=== PATIENT | female | born 1990 | race Caucasian/White ===

== ENCOUNTER 2017-06-29 03:42 | Emergency (ER) | payer SELFPAY ==
[2017-06-29] MEDS ORDERED: METOCLOPRAMIDE HCL INJ/PF 10 MG/2 ML SDV IV ONE (05:09)
[2017-06-29] MEDS ORDERED: KETOROLAC TROMETHAMINE INJ/PF 30 MG/1 ML SDV IV ONE (05:09)
[2017-06-29] MEDS ORDERED: DIPHENHYDRAMINE HCL 50 MG/ML VIAL IV ONE (05:09)
[2017-06-29] MEDS ORDERED: NORMAL SALINE 1000 ML 1,000 ML IV ONE (05:09)
[2017-06-29] MEDS ORDERED: LIDOCAINE 2% VISCOUS SOLN 20 ML UDCUP PO ONE (05:10)
[2017-06-29] MEDS ORDERED: MAG HYDROX/AL HYDROX/SIMETH SUSP 30 ML UDCUP PO ONE (05:10)
--- NOTE | 2017-06-29 05:10 | ER Document Report ---
HPI - HPI Patient complains to provider of: VARGHESE Onset: Yesterday Onset/Duration: Gradual Quality of pain: Achy Pain Level: 4 Context: Patient presents complaining of headache pain that started yesterday around noon to the orthodox area. Patient reports photophobia and phonophobia. Patient also reports some left upper quadrant abdominal pain with drinking water that started around 1:00 this morning. Patient states that she ate some bad pork 2 days ago that caused her to have nausea and vomiting on Wednesday. Patient states the vomiting has resolved. Patient suspects her abdominal tenderness is from this recent food poisoning. Associated Symptoms: Headache, Nausea. denies: Nonproductive cough, Productive cough, Fever Exacerbated by: Denies Relieved by: Denies Similar symptoms previously: Yes Recently seen / treated by doctor: No - ROS ROS below otherwise negative: Yes Systems Reviewed and Negative: Yes All other systems reviewed and negative - CONSTITUTIONAL Constitutional: DENIES: Fever - NEURO Neurology: REPORTS: Headache. DENIES: Weakness, Vision blurred - RESPIRATORY Respiratory: DENIES: Trouble Breathing, Coughing - GASTROINTESTINAL Gastrointestinal: REPORTS: Abdominal Pain, Nausea - REPRODUCTIVE Reproductive: DENIES: : - MUSCULOSKELETAL Musculoskeletal: DENIES: Back Pain, Neck Pain - DERM Skin Color: Normal Skin Problems: None Past Medical History - General Information source: Patient - Social History Smoking Status: Never Smoker Frequency of alcohol use: None Drug Abuse: None Occupation: house keeping Lives with: Family Family History: Reviewed & Not Pertinent Patient has suicidal ideation: No Patient has homicidal ideation: No Neurological Medical History: Reports: Hx Migraine Renal/ Medical History: Reports: Hx Kidney Stones. Denies: Hx Peritoneal Dialysis GI Medical History: Reports: Hx Gastroesophageal Reflux Disease Past Surgical History: Reports: Hx Section - Immunizations Immunizations up to date: Yes Hx Diphtheria, Pertussis, Tetanus Vaccination: Yes Vertical Provider Document - CONSTITUTIONAL Agree With Documented VS: Yes Exam Limitations: No Limitations General Appearance: WD/WN, No Apparent Distress - INFECTION CONTROL TRAVEL OUTSIDE OF THE [place] IN LAST 30 DAYS: No - HEENT HEENT: Atraumatic, Normal ENT Exam, Normocephalic - NECK Neck: Normal Inspection, Supple. negative: Lymphadenopathy-Left, Lymphadenopathy-Right Notes: No meningismus - RESPIRATORY Respiratory: Breath Sounds Normal, No Respiratory Distress, Chest Non-Tender O2 Sat by Pulse Oximetry: 97 - CARDIOVASCULAR Cardiovascular: Regular Rate, Regular Rhythm, No Murmur - GI/ABDOMEN Gastrointestinal: Abdomen Soft, Abdomen Tender - Epigastric, left upper quadrant tenderness. negative: Abdominal Guarding - BACK Back: Normal Inspection. negative: CVA Tenderness-Right, CVA Tenderness-Left - MUSCULOSKELETAL/EXTREMETIES Musculoskeletal/Extremeties: ANTWON FROM - NEURO Level of Consciousness: Awake, Alert, Appropriate Motor/Sensory: No Motor Deficit - DERM Integumentary: Warm, Dry, No Rash Course - Re-evaluation Re-evalutation: 06/29/17 06:22 Patient reports that headache pain is improved, patient reports nausea is improved as well. Patient up to collect a urine specimen. 06/29/17 07:00 Patient reports abdominal pain was resolved after GI cocktail. Abdomen soft, nontender. Patient nontoxic in appearance. Discussed worsening signs or symptoms the patient should return immediately for. Patient verbalized understanding and agrees with plan of care. - Vital Signs Vital signs: Temp Pulse Resp BP Pulse Ox 98.5 F 92 16 142/100 H 97 06/29/17 04:35 06/29/17 04:35 06/29/17 04:35 06/29/17 04:35 06/29/17 04:35 - Laboratory Result Diagrams: 06/29/17 05:25 06/29/17 05:25 Laboratory results interpreted by me: 06/29/17 07:00 Labs- Entire Visit 06/29/17 06/29/17 06/29/17 05:25 05:25 05:25 WBC 4.6 RBC 4.99 Hgb 13.9 Hct 41.2 MCV 83 MCH 27.9 MCHC 33.8 RDW 14.9 H Plt Count 225 Seg Neutrophils % 72.1 Lymphocytes % 20.9 Monocytes % 5.9 Eosinophils % 0.8 Basophils % 0.3 Absolute Neutrophils 3.3 Absolute Lymphocytes 1.0 Absolute Monocytes 0.3 Absolute Eosinophils 0.0 Absolute Basophils 0.0 Sodium 140.4 Potassium 4.0 Chloride 102 Carbon Dioxide 26 Anion Gap 12 BUN 11 Creatinine 0.62 Est GFR ( Amer) > 60 Est GFR (Non-Af Amer) > 60 Glucose 108 Calcium 9.4 Total Bilirubin 0.8 Direct Bilirubin 0.4 Indirect Bilirubin Not Reportable Neonat Total Bilirubin Not Reportable AST 18 ALT 27 Alkaline Phosphatase 99 Total Protein 6.9 Albumin 3.9 Lipase 58.3 Serum HCG, Qual NEGATIVE Urine Color Urine Appearance Urine pH Ur Specific [place] Urine Protein Urine Glucose (UA) Urine Ketones Urine Blood Urine Nitrite Urine Bilirubin Urine Urobilinogen Ur Leukocyte Esterase Urine WBC (Auto) Urine RBC (Auto) Urine Bacteria (Auto) Squamous Epi Cells Auto Amorphous Sediment Auto Urine Mucus (Auto) Urine Ascorbic Acid 06/29/17 06:23 WBC RBC Hgb Hct MCV MCH MCHC RDW Plt Count Seg Neutrophils % Lymphocytes % Monocytes % Eosinophils % Basophils % Absolute Neutrophils Absolute Lymphocytes Absolute Monocytes Absolute Eosinophils Absolute Basophils Sodium Potassium Chloride Carbon Dioxide Anion Gap BUN Creatinine Est GFR ( Amer) Est GFR (Non-Af Amer) Glucose Calcium Total Bilirubin Direct Bilirubin Indirect Bilirubin Neonat Total Bilirubin AST ALT Alkaline Phosphatase Total Protein Albumin Lipase Serum HCG, Qual Urine Color YELLOW Urine Appearance SLIGHTLY-CLOUDY Urine pH 6.0 Ur Specific [place] 1.017 Urine Protein NEGATIVE Urine Glucose (UA) NEGATIVE Urine Ketones NEGATIVE Urine Blood SMALL H Urine Nitrite NEGATIVE Urine Bilirubin NEGATIVE Urine Urobilinogen NEGATIVE Ur Leukocyte Esterase LARGE H Urine WBC (Auto) 42 Urine RBC (Auto) 8 Urine Bacteria (Auto) TRACE Squamous Epi Cells Auto 5 Amorphous Sediment Auto TRACE Urine Mucus (Auto) FEW Urine Ascorbic Acid NEGATIVE Discharge - Discharge Clinical Impression: Elevated blood pressure reading Headache Qualifiers: Headache type: unspecified Headache chronicity pattern: unspecified pattern Intractability: not intractable Qualified Code(s): R51 - Headache Gastritis Qualifiers: Gastritis type: unspecified gastritis Chronicity: acute Gastritis bleeding: without bleeding Qualified Code(s): K29.00 - Acute gastritis without bleeding UTI (urinary tract infection) Qualifiers: Urinary tract infection type: site unspecified Hematuria presence: with hematuria Qualified Code(s): N39.0 - Urinary tract infection, site not specified Condition: Stable Disposition: HOME, SELF-CARE Instructions: Antinausea Medication ([facility]), Gastritis ([facility]), Headache ([facility]), Trimethoprim-Sulfa ([facility]), Urinary Tract Infection ([facility]) Additional Instructions: Return immediately for any new or worsening symptoms Followup with your primary care provider, [facility], call tomorrow to make a followup appointment Prescriptions: Omeprazole Magnesium [Prilosec Otc] 20 mg PO DAILY #15 tablet. Promethazine HCl [Phenergan 25 mg Tablet] 25 mg PO Q6H PRN #10 tablet PRN Reason: Sucralfate [Carafate 1 gm Tablet] 1 gm PO ACHS #40 tablet Sulfamethoxazole/Trimethoprim [Bactrim Ds Tablet] 1 each PO BID #10 tablet Forms: Return to Work, Elevated Blood Pressure
[2017-06-29 05:58] LABS: ABSOLUTE MONOCYTES (AUTO) 0.3 10^3/uL (0.1-1.4); ABSOLUTE NEUT (AUTO) 3.3 10^3/uL (1.7-8.2); BASOPHILS % (AUTO) 0.3 % (0-2); EOSINOPHILS % (AUTO) 0.8 % (0-6); HEMATOCRIT 41.2 % (36.0-47.0); HEMOGLOBIN 13.9 g/dL (12.0-15.5); HGB HCT DIFFERENCE 0.5; LYMPHOCYTES % (AUTO) 20.9 % (13-45); MEAN CORPUSCULAR HEMOGLOBIN 27.9 pg (27.0-33.4); MEAN CORPUSCULAR HGB CONC 33.8 g/dL (32.0-36.0); MEAN CORPUSCULAR VOLUME 83 fl (80-97); MONOCYTES % (AUTO) 5.9 % (3-13); RED BLOOD COUNT 4.99 10^6/uL (3.72-5.28); RED CELL DISTRIBUTION WIDTH 14.9 % (11.5-14.0); SEGMENTED NEUTROPHILS % (AUTO) 72.1 % (42-78); WHITE BLOOD COUNT 4.6 10^3/uL (4.0-10.5)
[2017-06-29 06:15] LABS: ALANINE AMINOTRANSFERASE 27 U/L (9-52); ALBUMIN 3.9 g/dL (3.5-5.0); ALKALINE PHOSPHATASE 99 U/L (38-126); ANION GAP 12 (5-19); ASPARTATE AMINO TRANSFERASE 18 U/L (14-36); BILIRUBIN,DIRECT 0.4 mg/dL (0.0-0.4); BILIRUBIN,TOTAL 0.8 mg/dL (0.2-1.3); BLOOD UREA NITROGEN 11 mg/dL (7-20); CALCIUM 9.4 mg/dL (8.4-10.2); CARBON DIOXIDE 26 mmol/L (22-30); CHLORIDE 102 mmol/L (98-107); CREATININE RESULT 0.62 mg/dL (0.52-1.25); GLUCOSE 108 mg/dL (75-110); LIPASE 58.3 U/L (23-300); SODIUM 140.4 mmol/L (137-145); TOTAL PROTEIN 6.9 g/dL (6.3-8.2)
[2017-06-29 06:54] LABS: AMORPHOUS SEDIMENT,URINE TRACE /HPF; APPEARANCE,URINE SLIGHTLY-CLOUDY; BILIRUBIN,URINE NEGATIVE (NEGATIVE); GLUCOSE, URINE NEGATIVE (NEGATIVE); KETONES,URINE NEGATIVE (NEGATIVE); LEUKOCYTE ESTERASE,URINE LARGE (NEGATIVE); NITRITE,URINE NEGATIVE (NEGATIVE); PROTEIN,URINE NEGATIVE (NEGATIVE); URINE SPECIFIC GRAVITY 1.017; UROBILINOGEN,URINE NEGATIVE mg/dL (<2.0)
[2017-06-29] MEDS ORDERED: SULFAMETHOXAZOLE/TRIMETHOPRIM 800-160 MG TABLET PO ONE (06:56)
[2017-06-29 07:15] VITALS: BP 133/90
== END 2017-06-29 07:15 | disposition home or self-care (01) ==
LOC: ER 03:42
DX: R51 Headache (principal); K29.00 Acute gastritis without bleeding; N39.0 Urinary tract infection, site not specified; R31.9 Hematuria, unspecified; R03.0 Elevated blood-pressure reading, without diagnosis of hypertension; H53.149 Visual discomfort, unspecified; R10.12 Left upper quadrant pain; R11.0 Nausea
CPT/HCPCS: 99284; 96361; 96374; 96375; 36415; 83690; 84703; 85025; 80053; 81001; J1200; J3490; J1885; J2765; J7030

== ENCOUNTER 2018-01-03 17:22 | Emergency (ER) | payer SELFPAY ==
[2018-01-03] MEDS ORDERED: ACETAMINOPHEN 325 MG TABLET PO ONE (17:58)
--- NOTE | 2018-01-03 18:22 | RADIOLOGY REPORT (SQ) ---
EXAM DESCRIPTION: ANKLE LEFT COMPLETE COMPLETED DATE/TIME: 01/03/2018 6:08 pm REASON FOR STUDY: twisted her ankle today, pain COMPARISON: None. NUMBER OF VIEWS: Three views. TECHNIQUE: AP, lateral, and oblique radiographic images acquired of the left ankle. LIMITATIONS: None. FINDINGS: MINERALIZATION: Normal. BONES: No acute fracture or dislocation. No worrisome bone lesions. JOINTS: No effusions. SOFT TISSUES: No soft tissue swelling. No foreign body. OTHER: No other significant finding. IMPRESSION: NEGATIVE STUDY OF THE LEFT ANKLE. NO RADIOGRAPHIC EVIDENCE OF ACUTE INJURY. TECHNICAL DOCUMENTATION: JOB ID: [id number] [employer]- All Rights Reserved Reading location - IP/workstation name: [email or web address]
--- NOTE | 2018-01-03 18:36 | ER Document Report ---
HPI - HPI Patient complains to provider of: Left ankle and foot pain Pain Level: 4 Context: Patient is a 27-year-old female who presents emergency department after a fall earlier this afternoon. Patient states that she was walking slipped over a rock and anterior and laterally rolled her left foot. And scratched her right knee. She admits to pain is along the top of her left foot and along her lateral ankle. She denies any significant swelling. She is taken 400 mg of Motrin prior to arrival. States it is worse with weightbearing and deep palpation. - REPRODUCTIVE LMP: 12/05/17 Reproductive: DENIES: : - MUSCULOSKELETAL Musculoskeletal: REPORTS: Extremity pain - left ankle Past Medical History - Social History Smoking Status: Smoker,Current Status Unk Family History: Reviewed & Not Pertinent Patient has suicidal ideation: No Patient has homicidal ideation: No Neurological Medical History: Reports: Hx Migraine Renal/ Medical History: Reports: Hx Kidney Stones. Denies: Hx Peritoneal Dialysis GI Medical History: Reports: Hx Gastroesophageal Reflux Disease Past Surgical History: Reports: Hx Section - Immunizations Immunizations up to date: Yes Hx Diphtheria, Pertussis, Tetanus Vaccination: Yes Vertical Provider Document - CONSTITUTIONAL Agree With Documented VS: Yes Notes: PHYSICAL EXAM GENERAL: Alert, interacts well. HEAD: Normocephalic, atraumatic. EXTREMITIES: Moves all 4 extremities spontaneously. Tenderness on the top of the foot along the left extensor digitorum longus. No edema, dorsalis pedis pulses 2/4 bilaterally. No cyanosis. NEUROLOGICAL: Alert and oriented x4. Normal speech. PSYCH: Normal affect, normal mood. SKIN: Warm, dry, normal turgor. Abrasion on the right knee without active bleeding - INFECTION CONTROL TRAVEL OUTSIDE OF THE [place] IN LAST 30 DAYS: No - RESPIRATORY O2 Sat by Pulse Oximetry: 100 Course - Re-evaluation Re-evalutation: 01/03/18 18:34 Patient is a 27-year-old female is hemodynamically stable, no acute distress. Presentation is consistent with a strain of her extensor digitorum longus secondary to her fall. No evidence of a septic joint, gout flare, dislocation, or fracture on exam and imaging. Vitals wnl. At this time, I do not see an indication for labs or further imaging. Will discharge with conservative measures, return precautions, and follow-up recommendations. - Vital Signs Vital signs: Temp Pulse Resp BP Pulse Ox 98.6 F 96 20 150/99 H 100 01/03/18 17:48 01/03/18 17:48 01/03/18 17:48 01/03/18 17:48 01/03/18 17:48 - Diagnostic Test Radiology reviewed: Image reviewed, Reports reviewed Procedures - Immobilization Left Foot Pre-Proc Neuro Vasc Exam: Normal Immobilizer type: Guy wrap Performed by: PCT Post-Proc Neuro Vasc Exam: Unchanged from pre-exam Alignment checked and good: Yes Discharge - Discharge Clinical Impression: Foot injury Qualifiers: Encounter type: initial encounter Laterality: left Qualified Code(s): S99.922A - Unspecified injury of left foot, initial encounter Condition: Good Disposition: HOME, SELF-CARE Instructions: Guy Wrap ([facility]), Ice & Elevation ([facility]), Sprained Ankle ([facility]) Prescriptions: Ketorolac Tromethamine [Toradol 10 mg Tablet] 10 mg PO Q6HP PRN #15 tablet PRN Reason: Forms: Elevated Blood Pressure, Return to Work Referrals: JESÚS FOWLER MD [Primary Care Provider] - Follow up in 1 week
[2018-01-03 18:46] VITALS: BP 144/81
== END 2018-01-03 19:02 | disposition home or self-care (01) ==
LOC: ER 17:22
PROC: 2W3RX1Z Immobilization of Left Lower Leg using Splint (ICD-10-PCS; principal; 2018-01-03)
DX: S99.922A Unspecified injury of left foot, initial encounter (principal); F17.200 Nicotine dependence, unspecified, uncomplicated; W01.0XXA Fall on same level from slipping, tripping and stumbling without subsequent striking against object, initial encounter; Z87.442 Personal history of urinary calculi
CPT/HCPCS: 99283

== ENCOUNTER 2018-02-09 17:57 | Emergency (ER) | payer SELFPAY ==
[2018-02-09] MEDS ORDERED: ONDANSETRON HCL INJ/PF 4 MG/2 ML SDV IV ONE (19:15)
[2018-02-09] MEDS ORDERED: KETOROLAC TROMETHAMINE INJ/PF 30 MG/1 ML SDV IV ONE ×2 (19:15→20:20)
[2018-02-09] MEDS ORDERED: NORMAL SALINE 1000 ML 1,000 ML IV ONE (19:15)
--- NOTE | 2018-02-09 19:18 | ER Document Report ---
ED Medical Screen (RME) - General Chief Complaint: Headache Stated Complaint: HEADACHE, DIZZY, CHILLS Time Seen by Provider: 02/09/18 19:13 Notes: Patient states she has migraines and now has a severe migraine headache as well as nausea and vomiting. In addition she has flank pain with pain with urination. She states she has a history of kidney stones. TRAVEL OUTSIDE OF THE [place] IN LAST 30 DAYS: No - Related Data Allergies/Adverse Reactions: No Known Allergies Allergy (Verified 02/09/18 17:59) Past Medical History - Social History Chew tobacco use (# tins/day): No Frequency of alcohol use: Rare Drug Abuse: None Neurological Medical History: Reports: Hx Migraine Renal/ Medical History: Reports: Hx Kidney Stones. Denies: Hx Peritoneal Dialysis GI Medical History: Reports: Hx Gastroesophageal Reflux Disease Past Surgical History: Reports: Hx Section - Immunizations Immunizations up to date: Yes Hx Diphtheria, Pertussis, Tetanus Vaccination: Yes Physical Exam - Vital signs Vitals: Temp Pulse Resp BP Pulse Ox 97.7 F 92 20 151/111 H 100 02/09/18 18:03 02/09/18 18:03 02/09/18 18:03 02/09/18 18:03 02/09/18 18:03 Course - Vital Signs Vital signs: Temp Pulse Resp BP Pulse Ox 97.7 F 92 20 151/111 H 100 02/09/18 18:03 02/09/18 18:03 02/09/18 18:03 02/09/18 18:03 02/09/18 18:03
[2018-02-09 20:46] LABS: ABSOLUTE EOSINOPHILS # (AUTO) 0.1 10^3/uL (0.0-0.6); ABSOLUTE LYMPHOCYTES (AUTO) 1.6 10^3/uL (0.5-4.7); ABSOLUTE MONOCYTES (AUTO) 0.3 10^3/uL (0.1-1.4); ABSOLUTE NEUT (AUTO) 7.7 10^3/uL (1.7-8.2); BASOPHILS % (AUTO) 0.5 % (0-2); EOSINOPHILS % (AUTO) 0.6 % (0-6); HEMATOCRIT 36.4 % (36.0-47.0); HEMOGLOBIN 12.3 g/dL (12.0-15.5); LYMPHOCYTES % (AUTO) 16.9 % (13-45); MEAN CORPUSCULAR HEMOGLOBIN 27.5 pg (27.0-33.4); MEAN CORPUSCULAR HGB CONC 33.8 g/dL (32.0-36.0); MEAN CORPUSCULAR VOLUME 82 fl (80-97); PLATELET COUNT 253 10^3/uL (150-450); RED BLOOD COUNT 4.47 10^6/uL (3.72-5.28); TOTAL CELLS COUNTED % (AUTO) 100 %; WHITE BLOOD COUNT 9.7 10^3/uL (4.0-10.5)
[2018-02-09 21:06] LABS: ALANINE AMINOTRANSFERASE 28 U/L (9-52); ALBUMIN 3.7 g/dL (3.5-5.0); ALKALINE PHOSPHATASE 87 U/L (38-126); ANION GAP 9 (5-19); ASPARTATE AMINO TRANSFERASE 12 U/L (14-36); BILIRUBIN,DIRECT 0.1 mg/dL (0.0-0.4); BILIRUBIN,TOTAL 0.3 mg/dL (0.2-1.3); BLOOD UREA NITROGEN 10 mg/dL (7-20); CALCIUM 8.7 mg/dL (8.4-10.2); CARBON DIOXIDE 26 mmol/L (22-30); CHLORIDE 108 mmol/L (98-107); GLUCOSE 102 mg/dL (75-110); POTASSIUM 3.9 mmol/L (3.6-5.0); SODIUM 143.4 mmol/L (137-145); TOTAL PROTEIN 6.4 g/dL (6.3-8.2)
[2018-02-09 21:33] LABS: APPEARANCE,URINE SLIGHTLY-CLOUDY; BILIRUBIN,URINE NEGATIVE (NEGATIVE); GLUCOSE, URINE NEGATIVE (NEGATIVE); KETONES,URINE TRACE mg/dL (NEGATIVE); LEUKOCYTE ESTERASE,URINE LARGE (NEGATIVE); NITRITE,URINE POSITIVE (NEGATIVE); PROTEIN,URINE 30 mg/dL (NEGATIVE); URINE SPECIFIC GRAVITY 1.024
[2018-02-09 21:38] LABS: COLOR,URINE YELLOW
--- NOTE | 2018-02-09 21:53 | ER Document Report ---
ED Headache - General Chief Complaint: Headache Stated Complaint: HEADACHE, DIZZY, CHILLS Time Seen by Provider: 02/09/18 19:13 Mode of Arrival: Ambulatory Information source: Patient TRAVEL OUTSIDE OF THE [place] IN LAST 30 DAYS: No - HPI Patient complains to provider of: Headache, "Migraine", Other - R. FLANK PAIN Patient reports: Occasional migraines Onset: Yesterday - APPROX. MIDNIGHT Onset was: Abrupt. denies: Thunderclap Timing: Still present Quality of pain: Achy, Dull Severity: Moderate Context: denies: CO exposure, Head injury, Insect bite, Meningitis exposure, Tick bite Preceding symptoms: Typical of prior aura(s) Associated symptoms: Chills, Nausea/vomiting, Photophobia. denies: Fever Exacerbated by: Light, Noise, Movement Similar symptoms previously: Yes - SAYS PRESENT H.A. IS TYPICAL OF PRIOR "MIGRAINES" Recently seen / treated by doctor: No - Related Data Allergies/Adverse Reactions: No Known Allergies Allergy (Verified 02/09/18 17:59) Past Medical History - General Information source: Patient - Social History Smoking Status: Never Smoker Cigarette use (# per day): No Chew tobacco use (# tins/day): No Frequency of alcohol use: Rare Drug Abuse: None Lives with: Spouse/Significant other Family History: Reviewed & Not Pertinent Patient has suicidal ideation: No Patient has homicidal ideation: No - Past Medical History Cardiac Medical History: Reports: None Pulmonary Medical History: Reports: None EENT Medical History: Reports: None Neurological Medical History: Reports: Hx Migraine Endocrine Medical History: Reports: None Renal/ Medical History: Reports: Hx Kidney Stones, Other - UTI. Denies: Hx Peritoneal Dialysis Malignancy Medical History: Reports: None GI Medical History: Reports: Hx Gastroesophageal Reflux Disease Musculoskeltal Medical History: Reports None Psychiatric Medical History: Reports: None Past Surgical History: Reports: Hx Section - Immunizations Immunizations up to date: Yes Hx Diphtheria, Pertussis, Tetanus Vaccination: Yes Review of Systems - Review of Systems Constitutional: See HPI EENT: No symptoms reported Cardiovascular: No symptoms reported Respiratory: No symptoms reported Gastrointestinal: See HPI Genitourinary: See HPI, Dysuria, Frequency, Flank pain Female Genitourinary: No symptoms reported Musculoskeletal: No symptoms reported Skin: No symptoms reported Neurological/Psychological: No symptoms reported Physical Exam - Vital signs Vitals: Temp Pulse Resp BP Pulse Ox 97.7 F 92 20 151/111 H 100 02/09/18 18:03 02/09/18 18:03 02/09/18 18:03 02/09/18 18:03 02/09/18 18:03 Interpretation: Hypertensive. No: Tachycardic, Tachypneic, Febrile - General General appearance: Appears well, Alert In distress: None - HEENT Head: Normocephalic Eyes: Normal Conjunctiva: Normal Ears: Normal Nasal: Normal Mouth/Lips: Normal Mucous membranes: Normal - Respiratory Respiratory status: No respiratory distress Breath sounds: Normal - Cardiovascular Rhythm: Regular Heart sounds: Normal auscultation Murmur: No - Abdominal Inspection: Obese - Back Back: CVA tenderness - RIGHT - Extremities General upper extremity: Normal inspection General lower extremity: Normal inspection - Neurological Neuro grossly intact: Yes Cognition: Normal Orientation: AAOx4 - Psychological Associated symptoms: Normal affect, Normal mood - Skin Skin Temperature: Warm Skin Moisture: Dry Skin Color: Normal Skin Turgor: Elastic Course - Re-evaluation Re-evalutation: 02/10/18 01:33 Patient states her headache is "much better." Results of laboratory studies discussed with patient and spouse. Will discharge with instructions for outpatient follow-up. - Vital Signs Vital signs: Temp Pulse Resp BP Pulse Ox 97.7 F 90 20 138/111 H 96 02/09/18 18:03 02/09/18 22:02 02/09/18 22:02 02/10/18 00:33 02/10/18 00:01 - Laboratory Result Diagrams: 02/09/18 20:35 02/09/18 20:35 Laboratory results interpreted by me: 02/09/18 02/09/18 02/09/18 20:35 20:35 21:00 Seg Neutrophils % 79.0 H Chloride 108 H AST 12 L Urine Protein 30 H Urine Ketones TRACE H Urine Blood MODERATE H Urine Nitrite POSITIVE H Urine Urobilinogen 4.0 H Ur Leukocyte Esterase LARGE H Discharge - Discharge Clinical Impression: Urinary tract infection Migraine Qualifiers: Migraine type: unspecified Status migrainosus presence: without status migrainosus Intractability: not intractable Qualified Code(s): G43.909 - Migraine, unspecified, not intractable, without status migrainosus Hypertension Qualifiers: Hypertension type: essential hypertension Qualified Code(s): I10 - Essential ( primary) hypertension Condition: Stable Disposition: HOME, SELF-CARE Instructions: Antinausea Medication ([facility]), Use of Diphenhydramine, Headache ( [facility]), High Blood Pressure, Requiring Treatment ([facility]), Oral Narcotic Medication ( [facility]), Pain Medication Injection ([facility]), Reglan ([facility]), Toradol Injection ([facility]), Urinary Tract Infection ([facility]), Nitrofurantoin ([facility]) Additional Instructions: HOME, BED REST FOR NEXT 6-8 HOURS. TAKE LOPRESSOR DIRECTED FOR BLOOD PRESSURE CONTROL. YOU MAY TAKE ZOFRAN IF NEEDED FOR NAUSEA CONTROL. YOU MAY TAKE FIORICET IF NEEDED FOR RECURRENT HEADACHE PAIN. FOLLOW UP WITH YOUR PRIMARY CARE PROVIDER FOR BLOOD PRESSURE MANAGEMENT. RETURN TO E.R. IF PROBLEMS. Prescriptions: Butalb/Acetaminophen/Caffeine [Fioricet (50-325-40 mg) Tablet] 1 - 2 tab PO Q4H PRN #20 each PRN Reason: For Headache Metoprolol Tartrate [Lopressor 25 mg Tablet] 12.5 mg PO Q12 #30 tab Nitrofurantoin/Nitrofuran Mac [Macrobid 100 mg Capsule] 100 mg PO BID #20 capsule
[2018-02-09] MEDS ORDERED: METOCLOPRAMIDE HCL INJ/PF 10 MG/2 ML SDV IV ONE (22:01)
[2018-02-09] MEDS ORDERED: NORMAL SALINE 1000 ML 1,000 ML IV PRN (22:01)
[2018-02-09] MEDS ORDERED: DIPHENHYDRAMINE HCL 50 MG/ML VIAL IV ONE (22:01)
[2018-02-09] MEDS ORDERED: LEVOFLOXACIN 500 MG/D5W RTU 500 MG/100 ML RTUPB IV ONE (22:06)
[2018-02-09] MEDS ORDERED: METOPROLOL TARTRATE 25 MG TABLET PO ONE (22:08)
[2018-02-10] MEDS ORDERED: METOPROLOL TARTRATE 25 MG TABLET PO ONE
[2018-02-10 01:01] VITALS: BP 134/100
[2018-02-10] MEDS ORDERED: ONDANSETRON ODT 4 MG TAB (6 TAB/ER DISP) PO PRN (01:33)
== END 2018-02-10 01:48 | disposition home or self-care (01) ==
LOC: ER 17:57
DX: G43.909 Migraine, unspecified, not intractable, without status migrainosus (principal); N39.0 Urinary tract infection, site not specified; I10 Essential (primary) hypertension; H53.149 Visual discomfort, unspecified; R10.9 Unspecified abdominal pain; R11.2 Nausea with vomiting, unspecified; R30.0 Dysuria; R35.0 Frequency of micturition; Z87.442 Personal history of urinary calculi; Z87.440 Personal history of urinary (tract) infections; Z87.19 Personal history of other diseases of the digestive system
CPT/HCPCS: 99284; 96361; 96375; 96365; 36415; 87086; 85025; 81025; 80053; 81001; J1956; J1200; J1885; J2765; J2405; J7030

== ENCOUNTER 2018-02-11 11:23 | Emergency (ER) | payer SELFPAY ==
[2018-02-11] MEDS ORDERED: KETOROLAC TROMETHAMINE 60 MG/2 ML SDV IM ONE (12:21)
--- NOTE | 2018-02-11 12:24 | ER Document Report ---
ED Medical Screen (RME) - General Chief Complaint: Flank Pain Stated Complaint: RIGHT SIDE PAIN Time Seen by Provider: 02/11/18 12:16 Notes: 27-year-old female patient with right flank pain since 8 AM this morning. There is some nausea with this. She was seen on 02/09/2018 in the evening for symptoms of headache, dizzy, chills. She was diagnosed with urinary tract infection culture has not been resulted yet. Urine did have over 20 WBCs and large amount of blood in it. She does have a history of kidney stones, none so far this year. She has had at least [address] scans in the past. She did have a negative hCG 2 days ago. She does have right CVA percussion tenderness. I have greeted and performed a rapid initial assessment of this patient. A comprehensive ED assessment and evaluation of the patient, analysis of test results and completion of the medical decision making process will be conducted by additional ED providers. TRAVEL OUTSIDE OF THE [place] IN LAST 30 DAYS: No - Related Data Allergies/Adverse Reactions: No Known Allergies Allergy (Verified 02/09/18 17:59) Past Medical History - Social History Chew tobacco use (# tins/day): No Frequency of alcohol use: None Drug Abuse: None Neurological Medical History: Reports: Hx Migraine Renal/ Medical History: Reports: Hx Kidney Stones. Denies: Hx Peritoneal Dialysis GI Medical History: Reports: Hx Gastroesophageal Reflux Disease Past Surgical History: Reports: Hx Section - Immunizations Immunizations up to date: Yes Hx Diphtheria, Pertussis, Tetanus Vaccination: Yes Physical Exam - Vital signs Vitals: Temp Pulse Resp BP Pulse Ox 97.8 F 76 20 152/96 H 99 02/11/18 11:28 02/11/18 11:28 02/11/18 11:28 02/11/18 11:28 02/11/18 11:28 Course - Vital Signs Vital signs: Temp Pulse Resp BP Pulse Ox 97.8 F 76 20 152/96 H 99 02/11/18 11:28 02/11/18 11:28 02/11/18 11:28 02/11/18 11:28 02/11/18 11:28
[2018-02-11 12:53] LABS: ABSOLUTE BASOPHILS # (AUTO) 0.1 10^3/uL (0.0-0.2); ABSOLUTE EOSINOPHILS # (AUTO) 0.1 10^3/uL (0.0-0.6); ABSOLUTE LYMPHOCYTES (AUTO) 1.6 10^3/uL (0.5-4.7); ABSOLUTE MONOCYTES (AUTO) 0.3 10^3/uL (0.1-1.4); ABSOLUTE NEUT (AUTO) 8.5 10^3/uL (1.7-8.2); BASOPHILS % (AUTO) 0.5 % (0-2); EOSINOPHILS % (AUTO) 0.8 % (0-6); HEMATOCRIT 39.4 % (36.0-47.0); HEMOGLOBIN 13.3 g/dL (12.0-15.5); LYMPHOCYTES % (AUTO) 15.2 % (13-45); MEAN CORPUSCULAR HEMOGLOBIN 27.6 pg (27.0-33.4); MEAN CORPUSCULAR HGB CONC 33.8 g/dL (32.0-36.0); MEAN CORPUSCULAR VOLUME 82 fl (80-97); MONOCYTES % (AUTO) 3.1 % (3-13); PLATELET COUNT 296 10^3/uL (150-450); RED BLOOD COUNT 4.83 10^6/uL (3.72-5.28); RED CELL DISTRIBUTION WIDTH 13.6 % (11.5-14.0); SEGMENTED NEUTROPHILS % (AUTO) 80.4 % (42-78); TOTAL CELLS COUNTED % (AUTO) 100 %; WHITE BLOOD COUNT 10.6 10^3/uL (4.0-10.5)
[2018-02-11] MEDS ORDERED: HYDROMORPHONE HCL INJ/PF 2 MG/ML AMPULE IV ONE (13:04)
[2018-02-11] MEDS ORDERED: ONDANSETRON HCL INJ/PF 4 MG/2 ML SDV IV ONE (13:04)
[2018-02-11] MEDS ORDERED: NORMAL SALINE 1000 ML 1,000 ML IV ONE (13:04)
--- NOTE | 2018-02-11 13:07 | ER Document Report ---
ED GI/ - General Chief Complaint: Flank Pain Stated Complaint: RIGHT SIDE PAIN Time Seen by Provider: 02/11/18 12:16 Mode of Arrival: Ambulatory Information source: Patient TRAVEL OUTSIDE OF THE [place] IN LAST 30 DAYS: No - HPI Patient complains to provider of: Flank pain Notes: 02/11/18 13:05 Patient is here with complaints of flank pain with nausea vomiting. The patient states she was seen here 2 days ago and diagnosed with urinary tract infection she was placed on Macrobid. She started developing some right-sided flank pain that has gotten progressively worse. She has a prior history of kidney stones, and states that this feels similar to prior kidney stones. She denies any fever. She has some nausea vomiting. She denies any diarrhea. No rash. No chest pain or shortness of breath. No injury. Nothing makes the pain better or worse. No unilateral numbness, tingling, weakness. No blurred or loss vision. No other complaints at this time. - Related Data Allergies/Adverse Reactions: No Known Allergies Allergy (Verified 02/09/18 17:59) Past Medical History - Social History Smoking Status: Never Smoker Chew tobacco use (# tins/day): No Frequency of alcohol use: None Drug Abuse: None Family History: Reviewed & Not Pertinent Patient has suicidal ideation: No Patient has homicidal ideation: No Neurological Medical History: Reports: Hx Migraine Renal/ Medical History: Reports: Hx Kidney Stones. Denies: Hx Peritoneal Dialysis GI Medical History: Reports: Hx Gastroesophageal Reflux Disease Past Surgical History: Reports: Hx Section - Immunizations Immunizations up to date: Yes Hx Diphtheria, Pertussis, Tetanus Vaccination: Yes Review of Systems - Review of Systems -: Yes All other systems reviewed and negative Physical Exam - Vital signs Vitals: Temp Pulse Resp BP Pulse Ox 97.8 F 76 20 152/96 H 99 02/11/18 11:28 02/11/18 11:28 02/11/18 11:28 02/11/18 11:28 02/11/18 11:28 - Notes Notes: GENERAL: alert, cooperative, nontoxic, no distress. HEAD: normocephalic, atraumatic EYES: conjunctiva pink without discharge, no external redness or swelling. EARS: no external swelling, no external redness NOSE: atraumatic, no external swelling MOUTH/THROAT: mucous membranes moist and pink, posterior pharynx without erythema, swelling, exudate. No trismus or drooling. NECK: soft, supple, full range of motion, no meningismus. CHEST: no distress, lungs clear and equal throughout. No wheezing, rales, rhonchi. CARDIAC: regular rate and rhythm, no murmur, normal capillary refill, normal pulses. No peripheral edema noted. ABDOMEN: Soft, nontender. No rebound tenderness or guarding. No mass. BACK: full range of motion, right CVA tenderness. EXTREMITIES: full range of motion of all extremities. No redness, no swelling. NEURO: alert and oriented x 3, no focal deficits, full range of motion of all extremities. PYSCH: appropriate mood, affect. Patient is cooperative. SKIN: pink, warm, dry, no rash. Course - Re-evaluation Re-evalutation: 02/11/18 15:34 Patient is nontoxic appearing with stable vitals. She is here with complaints of right flank pain. Patient was seen 2 days ago and and started on Macrobid for urinary tract infection. She is now having right flank pain. No fevers. CT shows a 2 mm right distal ureteral stone with some hydronephrosis. She is afebrile. White blood cell count 10.6. She has no abdominal tenderness on exam. Urinalysis shows large blood, small leukocyte esterase with a few white blood cells. The patient does not appear to be septic or have a septic stone at this time. She was given Rocephin in the emergency department. She was also given pain medication and states that she is feeling better at this time. I have offered an admission to the patient for IV antibiotics due to the fact that she has a kidney stone with a urinary tract infection even though it is mild. She states that she would prefer to try outpatient therapy with oral antibiotics at this time. This point the patient will be discharged home with Keflex. Urine cultures currently pending. She will be given a prescription for pain medication. She is instructed to follow-up with urology or her primary care doctor at the next available appointment for recheck. She is instructed to return to the emergency department as soon as possible if she develops worsening pain, high fever, persistent vomiting, or has any further concerns. The patient is noted to have elevated blood pressure during today's emergency department visit. The patient was informed of this finding. The patient was instructed that this may be related to pre-hypertension and requires further evaluation with a primary care provider. The patient has no hypertensive symptoms at this time. The patient's emergency department workup and current diagnosis were explained to the patient and or family. Follow-up instructions were provided. Medications if prescribed were discussed. Instructions for when to return to the emergency department including specific worrisome symptoms were discussed with the patient and/or family. - Vital Signs Vital signs: Temp Pulse Resp BP Pulse Ox 97.8 F 76 20 152/96 H 99 02/11/18 11:28 02/11/18 11:28 02/11/18 11:28 02/11/18 11:28 02/11/18 11:28 - Laboratory Result Diagrams: 02/11/18 12:34 02/11/18 12:34 Laboratory results interpreted by me: 02/11/18 02/11/18 02/11/18 12:27 12:34 12:34 WBC 10.6 H Seg Neutrophils % 80.4 H Absolute Neutrophils 8.5 H Glucose 115 H AST 12 L Urine Blood LARGE H Ur Leukocyte Esterase MODERATE H - Diagnostic Test Radiology reviewed: Image reviewed, Reports reviewed - CT abdomen pelvis shows a 2 mm right distal ureteral stone with hydronephrosis. Discharge - Discharge Clinical Impression: Kidney stone UTI (urinary tract infection) Qualifiers: Urinary tract infection type: acute cystitis Hematuria presence: with hematuria Qualified Code(s): N30.01 - Acute cystitis with hematuria Condition: Stable Disposition: HOME, SELF-CARE Instructions: Urinary Tract Infection ([facility]), Kidney Stone ([facility]) Additional Instructions: Take medications as prescribed. May take her Zofran as needed for nausea. Continue taking her blood pressure medication. Keep a log of her blood pressure and take this to her primary care doctor at the next available appointment. Follow-up with your primary care doctor or urology at the next available appointment. Follow-up sooner for worsening pain, high fever, persistent vomiting, or for any further concerns. Your blood pressure was elevated during today's visit. Have this rechecked with your doctor. The medication you were prescribed today may cause drowsiness. Do not drive or operate heavy machinery while taking this medication. Prescriptions: Cephalexin Monohydrate [Keflex 500 mg Capsule] 500 mg PO Q6H 10 Days #40 capsule Hydrocodone/Acetaminophen [Tram 5-325 mg Tablet] 2 tab PO Q6H PRN #15 tab PRN Reason: Forms: Elevated Blood Pressure, Smoking Cessation Education Referrals: MAYURI CASTELLANOS MD [NO LOCAL MD] - Follow up as needed [facility] [Provider Group] - Follow up as needed
[2018-02-11 13:17] LABS: ALANINE AMINOTRANSFERASE 24 U/L (9-52); ALBUMIN 4.1 g/dL (3.5-5.0); ALKALINE PHOSPHATASE 79 U/L (38-126); ANION GAP 10 (5-19); ASPARTATE AMINO TRANSFERASE 12 U/L (14-36); BILIRUBIN,DIRECT 0.1 mg/dL (0.0-0.4); BILIRUBIN,TOTAL 0.2 mg/dL (0.2-1.3); BLOOD UREA NITROGEN 12 mg/dL (7-20); CALCIUM 9.4 mg/dL (8.4-10.2); CARBON DIOXIDE 28 mmol/L (22-30); CHLORIDE 106 mmol/L (98-107); GLUCOSE 115 mg/dL (75-110); POTASSIUM 4.4 mmol/L (3.6-5.0); SODIUM 144.4 mmol/L (137-145); TOTAL PROTEIN 6.8 g/dL (6.3-8.2)
[2018-02-11 13:30] LABS: APPEARANCE,URINE SLIGHTLY-CLOUDY; BILIRUBIN,URINE NEGATIVE (NEGATIVE); COLOR,URINE YELLOW; GLUCOSE, URINE NEGATIVE (NEGATIVE); KETONES,URINE NEGATIVE (NEGATIVE); LEUKOCYTE ESTERASE,URINE MODERATE (NEGATIVE); NITRITE,URINE NEGATIVE (NEGATIVE); PROTEIN,URINE NEGATIVE (NEGATIVE); URINE SPECIFIC GRAVITY 1.013; UROBILINOGEN,URINE NEGATIVE mg/dL (<2.0)
[2018-02-11] MEDS ORDERED: CEFTRIAXONE 1 GM/D5W RTU 50 ML IV ONE (13:56)
--- NOTE | 2018-02-11 14:32 | RADIOLOGY REPORT (SQ) ---
EXAM DESCRIPTION: CT ABD/PELVIS NO ORAL OR IV COMPLETED DATE/TIME: 02/11/2018 2:06 pm REASON FOR STUDY: right flank pain, hx of kidney stones COMPARISON: None. TECHNIQUE: CT scan of the abdomen and pelvis performed without intravenous or oral contrast. Images reviewed with lung, soft tissue, and bone windows. Reconstructed coronal and sagittal MPR images revi ewed. All images stored on PACS. All CT scanners at this facility use dose modulation, iterative reconstruction, and/or weight based d osing when appropriate to reduce radiation dose to as low as reasonably achievable (ALARA). [facility]: Dose Right [facility]: CareDose [facility]: Dose Right [facility]: Teradose 4D [facility]: Smart [employer] RADIATION DOSE: CT Rad equipment meets quality standard of care and radiation dose reduction techniq ues were employed. CTDIvol: 19.7 mGy. DLP: 1208 mGy-cm.mGy. LIMITATIONS: None. FINDINGS: LOWER CHEST: No significant findings. No nodules or infiltrates. NON-CONTRASTED LIVER, SPLEEN, ADRENALS: Evaluation limited by lack of IV contrast. No identified sign ificant masses. PANCREAS: No masses. No peripancreatic inflammatory changes. GALLBLADDER: No identified stones by CT criteria. No inflammatory changes to suggest cholecystitis. RIGHT KIDNEY AND URETER: No suspicious masses. Assessment limited by lack of IV contrast. 2 mm calc ified density in the pelvic brim near the expected location of the right ureter. Differential is ure teral calculus versus phlebolith. Renal calculi measuring up to about 2 mm. Mild hydroureter. LEFT KIDNEY AND URETER: No suspicious masses. Assessment limited by lack of IV contrast. Renal calc jude measuring up to about 2 mm. No hydronephrosis or hydroureter. AORTA AND RETROPERITONEUM: No aneurysm. No retroperitoneal masses or adenopathy. BOWEL AND PERITONEAL CAVITY: No obvious masses or inflammatory changes. No free fluid. APPENDIX: Normal. PELVIS, BLADDER, AND ABDOMINAL WALL:No abnormal masses. No free fluid. Bladder normal. BONES: No significant findings. OTHER: No other significant finding. IMPRESSION: Bilateral renal calculi. Dilated right ureter with possible 2 mm stone distal right ure ter. COMMENT: Quality ID # [id number]: Final reports with documentation of one or more dose reduction techniques (e.g., Automated exposure control, adjustment of the mA and/or kV according to patient size, use of iterative reconstruction technique) TECHNICAL DOCUMENTATION: JOB ID: [id number] [employer]- All Rights Reserved Reading location - IP/workstation name: [email or web address]
[2018-02-11] MEDS ORDERED: CEFTRIAXONE INJ 1000 MG VIAL IV ONE (15:00)
[2018-02-11 16:16] VITALS: BP 138/90
== END 2018-02-11 16:15 | disposition home or self-care (01) ==
LOC: ER 11:23
DX: N20.0 Calculus of kidney (principal); N30.01 Acute cystitis with hematuria; R10.9 Unspecified abdominal pain; R11.2 Nausea with vomiting, unspecified; R03.0 Elevated blood-pressure reading, without diagnosis of hypertension
CPT/HCPCS: 99284; 96372; 96375; 96365; 36415; 87086; 83690; 85025; 80053; 81001; 74176; J1885; J1170; J0696; J2405; J7030

== ENCOUNTER 2018-02-21 02:10 | Emergency (ER) | payer SELFPAY ==
[2018-02-21] MEDS ORDERED: NORMAL SALINE 1000 ML 1,000 ML IV PRN (03:07)
[2018-02-21] MEDS ORDERED: KETOROLAC TROMETHAMINE INJ/PF 30 MG/1 ML SDV IV ONE ×2 (03:08→04:48)
--- NOTE | 2018-02-21 03:08 | ER Document Report ---
ED GI/ - General Chief Complaint: Possible Kidney Stone Stated Complaint: FLANK PAIN Time Seen by Provider: 02/21/18 02:54 Notes: Patient is a 27-year-old female who presents emergency department the chief complaint of right flank pain. Patient's was seen here twice 02/09 and 02/11. On February 11 she was diagnosed with a 2 mm stone and given Keflex for what appeared to be UTI and her urine however 2 cultures have come back with positive for Danii albicans without any underlying bacterial infection. Patient states that she did complete her Keflex as directed. She denies any fever, chills, pyuria, hematuria. Patient's been taking her pain medications as directed. She states she has not been able to follow-up with a urologist since she did not have one and has a referral pending from [facility]. TRAVEL OUTSIDE OF THE [place].S. IN LAST 30 DAYS: No - Related Data Allergies/Adverse Reactions: No Known Allergies Allergy (Verified 02/09/18 17:59) Past Medical History - Social History Smoking Status: Never Smoker Family History: Reviewed & Not Pertinent Neurological Medical History: Reports: Hx Migraine Renal/ Medical History: Reports: Hx Kidney Stones. Denies: Hx Peritoneal Dialysis GI Medical History: Reports: Hx Gastroesophageal Reflux Disease Past Surgical History: Reports: Hx Section - Immunizations Immunizations up to date: Yes Hx Diphtheria, Pertussis, Tetanus Vaccination: Yes Review of Systems - Review of Systems Constitutional: No symptoms reported EENT: No symptoms reported Cardiovascular: No symptoms reported Respiratory: No symptoms reported Gastrointestinal: No symptoms reported Genitourinary: See HPI Female Genitourinary: No symptoms reported Musculoskeletal: No symptoms reported Neurological/Psychological: No symptoms reported -: Yes All other systems reviewed and negative Physical Exam - Vital signs Vitals: Temp Pulse Resp BP Pulse Ox 97.6 F 75 17 144/109 H 98 02/21/18 02:25 02/21/18 02:25 02/21/18 02:25 02/21/18 02:25 02/21/18 02:25 - Notes Notes: PHYSICAL EXAM GENERAL: Alert, interacts well. LUNGS: Clear to auscultation bilaterally, no wheezes, rales, or rhonchi. No respiratory distress. HEART: Regular rate and rhythm. No murmurs, gallops, or rubs. ABDOMEN: Soft, nondistended, nontender. No guarding, rebound, or rigidity.. Bowel sounds present in all 4 quadrants. Back: No significant CVA tenderness bilaterally. No overlying parathoracic and paralumbar muscular tenderness. EXTREMITIES: Moves all 4 extremities spontaneously. No edema, radial and dorsalis pedis pulses 2/4 bilaterally. No cyanosis. NEUROLOGICAL: Alert and oriented x4. Normal speech. PSYCH: Normal affect, normal mood. SKIN: Warm, dry, normal turgor. No rashes or lesions noted. Course - Re-evaluation Re-evalutation: 02/21/18 05:50 Patient is a 27-year-old female is hemodynamically stable, no acute distress and afebrile. Patient presenting with concerned that she still has a kidney stone. She completed her antibiotics. CBC evidence of elevated blood cell count which could be related to her pain because otherwise there is no evidence of septic stone on her presentation. Patient afebrile, not tachycardic. Chemistry stable without evidence of acute renal failure or electrolyte abnormalities. Urine has improved in comparison to previous collections. 2 urine cultures do not show any evidence of bacteria but did show evidence of yeast. At this time I do not feel patient requires transfer for step down and also given that she recently had a CT scan on Wednesday do not see need to reimage her at this time. Discussed with her strict return precautions otherwise she can follow-up with urology tomorrow. Patient agrees with plan and stable for discharge home - Vital Signs Vital signs: Temp Pulse Resp BP Pulse Ox 97.6 F 75 17 144/109 H 98 02/21/18 02:25 02/21/18 02:25 02/21/18 02:25 02/21/18 02:25 02/21/18 02:25 - Laboratory Result Diagrams: 02/21/18 03:26 02/21/18 04:39 Laboratory results interpreted by me: 02/21/18 02/21/18 02/21/18 03:00 03:26 04:39 WBC 18.3 H RDW 14.3 H Absolute Neutrophils 13.1 H AST 9 L Urine Blood SMALL H Ur Leukocyte Esterase MODERATE H - Diagnostic Test Radiology reviewed: Image reviewed, Reports reviewed Discharge - Discharge Clinical Impression: Kidney stone Condition: Good Disposition: HOME, SELF-CARE Instructions: Kidney Stone ([facility]) Additional Instructions: Your symptoms should improve over the course of the next one week. If you continue to have pain for greater than one week or your pain is not controlled with the pain medications that you have been sent home with you need to return to the emergency department. Please also return if you develop fever, persistent vomiting, or any other symptoms that are concerning to you. You should take ibuprofen 600 mg every 6 hours and use the Percocet as prescribed only for pain not controlled by ibuprofen. Your also been sent home with a medication called Flomax to help pass the stone. You've been given Zofran to assist with nausea. Please followup closely with your primary care provider. [facility] in [place], [place] Address: [address] , [place] [address] Prescriptions: Hydrocodone/Acetaminophen [[place] 5-325 Tablet] 1 each PO Q6HP PRN #10 tablet PRN Reason: Tamsulosin HCl [Flomax] 0.4 mg PO DAILY #7 cap.er.24h Forms: Elevated Blood Pressure
[2018-02-21] MEDS ORDERED: NORMAL SALINE 1000 ML 1,000 ML IV ONE (03:27)
[2018-02-21 03:35] LABS: ABSOLUTE BASOPHILS # (AUTO) 0.1 10^3/uL (0.0-0.2); ABSOLUTE EOSINOPHILS # (AUTO) 0.4 10^3/uL (0.0-0.6); ABSOLUTE LYMPHOCYTES (AUTO) 3.7 10^3/uL (0.5-4.7); ABSOLUTE NEUT (AUTO) 13.1 10^3/uL (1.7-8.2); BASOPHILS % (AUTO) 0.7 % (0-2); HEMATOCRIT 40.9 % (36.0-47.0); HEMOGLOBIN 13.9 g/dL (12.0-15.5); LYMPHOCYTES % (AUTO) 20.1 % (13-45); MEAN CORPUSCULAR HEMOGLOBIN 27.6 pg (27.0-33.4); MEAN CORPUSCULAR HGB CONC 33.9 g/dL (32.0-36.0); MEAN CORPUSCULAR VOLUME 81 fl (80-97); MONOCYTES % (AUTO) 5.7 % (3-13); PLATELET COUNT 283 10^3/uL (150-450); RED BLOOD COUNT 5.03 10^6/uL (3.72-5.28); RED CELL DISTRIBUTION WIDTH 14.3 % (11.5-14.0); SEGMENTED NEUTROPHILS % (AUTO) 71.5 % (42-78); TOTAL CELLS COUNTED % (AUTO) 100 %; WHITE BLOOD COUNT 18.3 10^3/uL (4.0-10.5)
[2018-02-21 03:48] LABS: BILIRUBIN,URINE NEGATIVE (NEGATIVE); COLOR,URINE YELLOW; GLUCOSE, URINE NEGATIVE (NEGATIVE); KETONES,URINE NEGATIVE (NEGATIVE); LEUKOCYTE ESTERASE,URINE MODERATE (NEGATIVE); NITRITE,URINE NEGATIVE (NEGATIVE); PROTEIN,URINE NEGATIVE (NEGATIVE); URINE SPECIFIC GRAVITY 1.018; UROBILINOGEN,URINE NEGATIVE mg/dL (<2.0)
[2018-02-21 03:49] LABS: APPEARANCE,URINE CLEAR
--- NOTE | 2018-02-21 04:26 | RADIOLOGY REPORT (SQ) ---
EXAM DESCRIPTION: KUB/ABDOMEN (SINGLE VIEW) CLINICAL HISTORY: right flank pain, kidney stone COMPARISON: None. FINDINGS: Bowel: No dilated loops of large or small bowel. Peritoneum: No free intraperitoneal air identified. Solid organs: No definite organomegaly. Calcifications: No abnormal calcifications. Bones: No acute osseous abnormalities. Other:No additional findings. IMPRESSION: Nonobstructive bowel gas pattern.
[2018-02-21 05:32] LABS: ALANINE AMINOTRANSFERASE 25 U/L (9-52); ALBUMIN 3.7 g/dL (3.5-5.0); ALKALINE PHOSPHATASE 78 U/L (38-126); ANION GAP 12 (5-19); ASPARTATE AMINO TRANSFERASE 9 U/L (14-36); BILIRUBIN,DIRECT 0.2 mg/dL (0.0-0.4); BILIRUBIN,TOTAL 0.2 mg/dL (0.2-1.3); BLOOD UREA NITROGEN 19 mg/dL (7-20); CALCIUM 9.3 mg/dL (8.4-10.2); CARBON DIOXIDE 26 mmol/L (22-30); CHLORIDE 105 mmol/L (98-107); GLUCOSE 102 mg/dL (75-110); POTASSIUM 4.4 mmol/L (3.6-5.0); SODIUM 143.3 mmol/L (137-145); TOTAL PROTEIN 6.5 g/dL (6.3-8.2)
[2018-02-21] MEDS ORDERED: FLUCONAZOLE 100 MG TABLET PO ONE (05:37)
[2018-02-21 06:26] VITALS: BP 144/91
== END 2018-02-21 05:55 | disposition home or self-care (01) ==
LOC: ER 02:10
DX: N20.0 Calculus of kidney (principal); R10.9 Unspecified abdominal pain; Z87.440 Personal history of urinary (tract) infections
CPT/HCPCS: 96376; 99284; 96361; 96374; 36415; 87086; 85025; 81025; 80053; 81001; 74018; J1885; J7030

== ENCOUNTER 2019-02-08 07:34 | Emergency (ER) | payer MEDICAID ==
[2019-02-08] MEDS ORDERED: PENICILLIN G BENZATHINE 1.2 MILLION UNIT/2 ML DISP.SYRIN IM ONE (09:01)
[2019-02-08] MEDS ORDERED: DEXAMETHASONE SOD PHOS INJ 10 MG/1 ML VIAL IM ONE (09:01)
[2019-02-08] MEDS ORDERED: KETOROLAC TROMETHAMINE 60 MG/2 ML SDV IM ONE (09:04)
[2019-02-08] MEDS ORDERED: DIPHENHYDRAMINE HCL 50 MG/ML VIAL IV ONE (09:08)
[2019-02-08] MEDS ORDERED: NORMAL SALINE 1000 ML 1,000 ML IV ONE (09:08)
[2019-02-08] MEDS ORDERED: PENICILLIN V POTASSIUM 500 MG TABLET PO ONE (09:08)
[2019-02-08] MEDS ORDERED: KETOROLAC TROMETHAMINE INJ/PF 30 MG/1 ML SDV IV ONE (09:08)
--- NOTE | 2019-02-08 09:09 | ER Document Report ---
HPI - HPI Patient complains to provider of: VARGHESE, SORE THROAT, FEVER Time Seen by Provider: 02/08/19 08:54 Onset: Other - Wednesday Quality of pain: Achy - sore Severity: Moderate Pain Level: 3 Context: Patient presents emergency department with complaints of migraine headache since Wednesday, fever, sore throat and a lump on the left side of her throat. Patient reports she has had migraine headaches since Wednesday. Along with a sore throat. Patient reports fever noted that comes and goes last fever this morning at 2:00 was 102. which she took Tylenol for. Patient reports it is her typical migraine headache on the left presybeterian in the back of her neck feels like her head is going to explode, pressure. Denies vomiting diarrhea. Denies sick strep exposure. Reports her daughter is a carrier. Also reports she works at a [employer] center possible exposure there.. Patient is eating and drinking without problems. Associated Symptoms: Fever, Headache, Sore throat Exacerbated by: Denies Relieved by: Denies Similar symptoms previously: Yes Recently seen / treated by doctor: No - REPRODUCTIVE Reproductive: DENIES: : - DERM Skin Color: Normal Past Medical History - General Information source: Patient Last Menstrual Period: 2 weeks ago-patient reports no sex in 1/2 months and has vasectomy. - Social History Smoking Status: Never Smoker Chew tobacco use (# tins/day): No Frequency of alcohol use: None Drug Abuse: None Occupation: [employer] Lives with: Family Family History: Reviewed & Not Pertinent Patient has suicidal ideation: No Patient has homicidal ideation: No Neurological Medical History: Reports: Hx Migraine Renal/ Medical History: Reports: Hx Kidney Stones. Denies: Hx Peritoneal Dialysis GI Medical History: Reports: Hx Gastroesophageal Reflux Disease Past Surgical History: Reports: Hx Section - Immunizations Immunizations up to date: Yes Hx Diphtheria, Pertussis, Tetanus Vaccination: Yes Vertical Provider Document - CONSTITUTIONAL Agree With Documented VS: Yes Exam Limitations: No Limitations General Appearance: WD/WN, No Apparent Distress - Nontoxic looking - INFECTION CONTROL TRAVEL OUTSIDE OF THE [place] IN LAST 30 DAYS: No - HEENT HEENT: Atraumatic, Normocephalic, Pharyngeal Exudate, Pharyngeal Tenderness, Pharyngeal Erythema. negative: Conjuctival Injection, Tympanic Membrane Red, Tympanic Membrane Bulging - NECK Neck: Normal Inspection, Supple, Lymphadenopathy-Left - Submandibular, Lymphadenopathy-Right - RESPIRATORY Respiratory: Breath Sounds Normal, No Respiratory Distress. negative: Wheezing - CARDIOVASCULAR Cardiovascular: Regular Rhythm, Tachycardia - GI/ABDOMEN Gastrointestinal: Abdomen Soft, Abdomen Non-Tender - MUSCULOSKELETAL/EXTREMETIES Musculoskeletal/Extremeties: SCOTT KAPOOR - NEURO Level of Consciousness: Awake, Alert, Appropriate Motor/Sensory: No Motor Deficit - DERM Integumentary: Warm, Dry, No Rash Course - Re-evaluation Re-evalutation: 02/08/19 09:14 Patient reports there is no way that she can be . She reports she has not had sex and 1/2 months. She also reports her has a vasectomy. Discussed steroids regarding possible harm if she is . She verbalized understanding. Patient's heart rate is 120s with increased blood pressure. Will treat patient for migraine headache fluids Tylenol and Toradol. And strep throat with penvk and steroids.. 02/08/19 10:40 Patient reports she is feeling much better headache is a 2/5 - Vital Signs Vital signs: Temp Pulse Resp BP Pulse Ox 98.9 F 120 H 16 145/113 H 96 02/08/19 07:44 02/08/19 07:44 02/08/19 07:44 02/08/19 07:44 02/08/19 07:44 Discharge - Discharge Clinical Impression: Sore throat, Tonsillar exudate Headache Qualifiers: Headache type: unspecified Headache chronicity pattern: unspecified pattern Fever Qualifiers: Fever type: unspecified Qualified Code(s): R50.9 - Fever, unspecified Condition: Stable Disposition: HOME, SELF-CARE Instructions: Use of Diphenhydramine, Intravenous (IV) Fluids ([facility]), Migraine Headache ([facility]), Penicillin V K ([facility]), Sore Throat ([facility]), Steroid Medication Injection, Strep Throat ([facility]), Toradol Injection ([facility]) Additional Instructions: *You have been evaluated for a sore throat, tonsillar exudate, fever, migraine, strep *Take medication as prescribed, take ibuprofen as indicated for your fever and pain *Warm salt water gargles and throat lozenges for comfort *Change toothbrush after two days of antibiotics *Do not let anyone drink/eat after you *Good hand washing *Follow-up with a primary care provider within one week *Return to ED for worsening condition change, needs, unable to swallow Prescriptions: Penicillin V Potassium [Penicillin Vk 500 mg Tablet] 500 mg PO BID #20 tablet Forms: Elevated Blood Pressure, Return to Work
[2019-02-08] MEDS ORDERED: ACETAMINOPHEN 325 MG TABLET PO ONE (09:12)
[2019-02-08 10:53] VITALS: BP 143/95
== END 2019-02-08 10:55 | disposition home or self-care (01) ==
LOC: ER 07:34
DX: G43.909 Migraine, unspecified, not intractable, without status migrainosus (principal); J02.0 Streptococcal pharyngitis; R09.89 Other specified symptoms and signs involving the circulatory and respiratory systems; R50.9 Fever, unspecified
CPT/HCPCS: 99284; 96372; 96361; 96374; 96375; 87880; J3490 ×2; J1200; J1885; J7030; J1100

== ENCOUNTER 2019-06-02 12:19 | Emergency (ER) | payer MEDICAID ==
[2019-06-02] MEDS ORDERED: KETOROLAC TROMETHAMINE INJ/PF 30 MG/1 ML SDV IV ONE (12:42)
[2019-06-02] MEDS ORDERED: ONDANSETRON HCL INJ/PF 4 MG/2 ML SDV IV ONE (12:42)
[2019-06-02] MEDS ORDERED: MORPHINE SULFATE 10 MG/ML INJ IV ONE (12:43)
--- NOTE | 2019-06-02 12:45 | ER Document Report ---
ED Medical Screen (RME) - General Chief Complaint: Flank Pain Stated Complaint: FLANK PAIN Time Seen by Provider: 06/02/19 12:42 TRAVEL OUTSIDE OF THE [place] IN LAST 30 DAYS: No - HPI Notes: 06/02/19 12:43 Patient is a 28-year-old female with history of kidney stones who presents complaining of left flank pain that began this morning. Patient states that the pain starts in her flank and radiates into her groin. Patient states that the pain has become relatively constant. She has had associated nausea and vomiting with increased frequency of urination. Patient states that this mimics previous stones. Denies drug allergies. No other vaginal discharge, odor, or bleeding. No other significant past medical history. Denies VARGHESE, fever, neck pain, URI, CP, SOB, or rash. I have treated and performed a rapid initial assessment of this patient. A comprehensive ED assessment and evaluation of the patient, analysis of test results and completion of medical decision making process will be conducted by additional ED providers. PHYSICAL EXAMINATION: GENERAL: no acute resp distress. Pt holding left flank and appears uncomfortable LUNGS: Breath sounds clear to auscultation bilaterally and equal. No wheezes rales or rhonchi. HEART: Regular rate and rhythm without murmurs, rubs, gallops. ABDOMEN: Soft, nondistended abdomen. No guarding, no rebound. Normal bowel sounds present. + left CVA tenderness. + left abd tenderness (cannot elicit thorough abd exam w/o bed, however). - Related Data Allergies/Adverse Reactions: No Known Allergies Allergy (Verified 06/02/19 12:20) Past Medical History Neurological Medical History: Reports: Hx Migraine Renal/ Medical History: Reports: Hx Kidney Stones. Denies: Hx Peritoneal Dialysis GI Medical History: Reports: Hx Gastroesophageal Reflux Disease Past Surgical History: Reports: Hx Section - Immunizations Immunizations up to date: Yes Hx Diphtheria, Pertussis, Tetanus Vaccination: Yes Physical Exam - Vital signs Vitals: Temp Pulse Resp Pulse Ox 98.1 F 78 22 H 98 06/02/19 12:32 06/02/19 12:32 06/02/19 12:32 06/02/19 12:32 Course - Vital Signs Vital signs: Temp Pulse Resp BP Pulse Ox 98.1 F 78 22 H 98 06/02/19 12:32 06/02/19 12:32 06/02/19 12:32 06/02/19 12:32
[2019-06-02 13:04] LABS: APPEARANCE,URINE SLIGHTLY-CLOUDY; BILIRUBIN,URINE NEGATIVE (NEGATIVE); COLOR,URINE YELLOW; GLUCOSE, URINE NEGATIVE (NEGATIVE); KETONES,URINE NEGATIVE (NEGATIVE); LEUKOCYTE ESTERASE,URINE SMALL (NEGATIVE); NITRITE,URINE NEGATIVE (NEGATIVE); PROTEIN,URINE 30 mg/dL (NEGATIVE); URINE SPECIFIC GRAVITY 1.021; UROBILINOGEN,URINE NEGATIVE mg/dL (<2.0)
[2019-06-02 13:08] LABS: ABSOLUTE MONOCYTES (AUTO) 0.2 10^3/uL (0.1-1.4); ABSOLUTE NEUT (AUTO) 9.8 10^3/uL (1.7-8.2); BASOPHILS % (AUTO) 0.3 % (0-2); EOSINOPHILS % (AUTO) 0.1 % (0-6); HEMATOCRIT 39.9 % (36.0-47.0); HEMOGLOBIN 13.2 g/dL (12.0-15.5); MEAN CORPUSCULAR HEMOGLOBIN 26.6 pg (27.0-33.4); MEAN CORPUSCULAR HGB CONC 33.2 g/dL (32.0-36.0); MEAN CORPUSCULAR VOLUME 80 fl (80-97); PLATELET COUNT 274 10^3/uL (150-450); RED BLOOD COUNT 4.97 10^6/uL (3.72-5.28); SEGMENTED NEUTROPHILS % (AUTO) 88.6 % (42-78); TOTAL CELLS COUNTED % (AUTO) 100 %
--- NOTE | 2019-06-02 13:27 | ER Document Report ---
Addendum entered and electronically signed by FLOWER NGUYEN NP 06/02/19 17:07: Discharge - Discharge Clinical Impression: Flank pain, Kidney stone on left side Condition: Stable Disposition: HOME, SELF-CARE Instructions: Flomax ([facility]), Kidney Stone ([facility]), Oral Narcotic Medication ([facility]), Pain Medication Injection ([facility]), Toradol Injection ([facility]) Additional Instructions: *You have been evaluated for flank pain, kidney stone *Take medication as prescribed *Follow up with [facility] July 06, 2019 at 0930- Please call the office at [phone] to change the appointment or for further information *Return to ED for worsening condition, changes, needs, fever, increased pain, concerns Prescriptions: Cephalexin Monohydrate [Keflex 500 mg Capsule] 500 mg PO QID #20 capsule Oxycodone HCl/Acetaminophen [Percocet 5-325 mg Tablet] 1 tab PO ASDIR PRN #15 tab PRN Reason: Tamsulosin HCl [Flomax 0.4 mg Cap.sr] 0.4 mg PO DAILY #7 cap.sr.24h Forms: Return to Work Original Note: ED General - General Chief Complaint: Flank Pain Stated Complaint: FLANK PAIN Time Seen by Provider: 06/02/19 12:42 Mode of Arrival: Ambulatory Information source: Patient Notes: This 28-year-old female presents emergency department with complaints of left- sided flank pain that started this morning. Patient has history of kidney stones. Reports that she started feeling discomfort as she was going over some bridges on the way to her work at [employer]. Upon arrival to her work she started vomiting. She denies fever or diarrhea. Denies trauma. Denies pain with void. Denies vaginal discharge. Reports she has a history of kidney stones and it feels the same way. TRAVEL OUTSIDE OF THE [place] IN LAST 30 DAYS: No - HPI Onset: This morning Onset/Duration: Sudden Quality of pain: Sharp Severity: Severe Associated symptoms: Nausea, Vomiting Exacerbated by: Denies Relieved by: Denies Similar symptoms previously: Yes Recently seen / treated by doctor: No - Related Data Allergies/Adverse Reactions: No Known Allergies Allergy (Verified 06/02/19 12:20) Past Medical History - General Information source: Patient Last Menstrual Period: april - Social History Smoking Status: Never Smoker Cigarette use (# per day): No Frequency of alcohol use: None Drug Abuse: None Occupation: [employer] Lives with: Family Family History: Reviewed & Not Pertinent Patient has suicidal ideation: No Patient has homicidal ideation: No Neurological Medical History: Reports: Hx Migraine Renal/ Medical History: Reports: Hx Kidney Stones. Denies: Hx Peritoneal Dialysis GI Medical History: Reports: Hx Gastroesophageal Reflux Disease Past Surgical History: Reports: Hx Section - Immunizations Immunizations up to date: Yes Hx Diphtheria, Pertussis, Tetanus Vaccination: Yes Review of Systems - Review of Systems Notes: Review HPI for review of systems., All other systems negative Physical Exam - Vital signs Vitals: Temp Pulse Resp Pulse Ox 98.1 F 78 22 H 98 06/02/19 12:32 06/02/19 12:32 06/02/19 12:32 06/02/19 12:32 - Notes Notes: PHYSICAL EXAMINATION: GENERAL: Well-appearing and in no acute distress HEAD: Atraumatic, normocephalic. EYES: Pupils equal round extraocular movements intact, sclera anicteric, conjunctiva are normal. ENT: nares patent, Moist mucous membranes. NECK: Normal range of motion, supple without lymphadenopathy LUNGS: CTAB and equal. No wheezes rales or rhonchi. HEART: Regular rate and rhythm without murmurs ABDOMEN: Soft, no tenderness. No guarding, no rebound BACK: Left CVA ttp EXTREMITIES: Normal range of motion, NEUROLOGICAL: Cranial nerves grossly intact. PSYCH: Normal mood, normal affect. SKIN: Warm, Dry, normal turgor, no rashes or lesions noted Course - Re-evaluation Re-evalutation: 06/02/19 15:36 This 28-year-old female presents emergency department with complaints of left- sided flank pain that started this morning. Patient has history of kidney stones. Reports that she started feeling discomfort as she was going over some bridges on the way to her work at [employer]. Upon arrival to her work she started vomiting. She denies fever or diarrhea. Denies trauma. Denies pain with void. Denies vaginal discharge. Reports she has a history of kidney stones and it feels the same way. Patient was provided with pain medication and did report relief. Labs done which showed mild leukocytosis with a small amount of blood noted in urine. CT scan does show 3 millimeter obstructive calculus at the left UVJ with moderate associated hydronephrosis hydroureter. Small bilateral nonobstructive renal calculi noted also. Patient was updated on all results. She feels comfortable going home. Patient reports last time she had a kidney stone lately leading to a kidney infection. Will prescribe Flomax Percocet and Keflex. Contacted [facility]rology on [address] and arrange for her to have an appointment for July 06 at 930. Patient was informed of this appointment. She was instructed to contact the office if she changed her mind or went to another urology clinic. She verbalized understanding to all instructions. 06/02/19 Abdomen/Pelvis CT 06/02/19 12:43 IMPRESSION: There is a 3 mm obstructive calculus at the left ureterovesicular junction with moderate associated hydronephrosis and hydroureter. There are additional small bilateral nonobstructive renal calculi. 06/02/19 12:58 06/02/19 12:58 MCV 80 fl (80-97) 06/02/19 12:58 MCH 26.6 pg (27.0-33.4) L 06/02/19 12:58 MCHC 33.2 g/dL (32.0-36.0) 06/02/19 12:58 RDW 15.0 % (11.5-14.0) H 06/02/19 12:58 Seg Neutrophils % 88.6 % (42-78) H 06/02/19 12:58 Lymphocytes % 9.0 % (13-45) L 06/02/19 12:58 Monocytes % 2.0 % (3-13) L 06/02/19 12:58 Eosinophils % 0.1 % (0-6) 06/02/19 12:58 Basophils % 0.3 % (0-2) 06/02/19 12:58 Absolute Neutrophils 9.8 10^3/uL (1.7-8.2) H 06/02/19 12:58 Absolute Lymphocytes 1.0 10^3/uL (0.5-4.7) 06/02/19 12:58 Absolute Monocytes 0.2 10^3/uL (0.1-1.4) 06/02/19 12:58 Absolute Eosinophils 0.0 10^3/uL (0.0-0.6) 06/02/19 12:58 Absolute Basophils 0.0 10^3/uL (0.0-0.2) 06/02/19 12:58 Chloride 108 mmol/L (98-107) H 06/02/19 12:58 Carbon Dioxide 29 mmol/L (22-30) 06/02/19 12:58 Anion Gap 7 (5-19) 06/02/19 12:58 Est GFR ( Amer) > 60 (>60) 06/02/19 12:58 Est GFR (Non-Af Amer) > 60 (>60) 06/02/19 12:58 Glucose 124 mg/dL (75-110) H 06/02/19 12:58 Calcium 9.8 mg/dL (8.4-10.2) 06/02/19 12:58 Total Bilirubin 0.4 mg/dL (0.2-1.3) 06/02/19 12:58 AST 19 U/L (14-36) 06/02/19 12:58 Alkaline Phosphatase 88 U/L (38-126) 06/02/19 12:58 Total Protein 7.2 g/dL (6.3-8.2) 06/02/19 12:58 Albumin 4.3 g/dL (3.5-5.0) 06/02/19 12:58 Lipase 100.8 U/L (23-300) 06/02/19 12:58 Serum HCG, Qual NEGATIVE (NEGATIVE) 06/02/19 12:58 Urine Color YELLOW 06/02/19 12:30 Urine Appearance SLIGHTLY-CLOUDY 06/02/19 12:30 Urine pH 7.0 (5.0-9.0) 06/02/19 12:30 Ur Specific [place] 1.021 06/02/19 12:30 Urine Protein 30 mg/dL (NEGATIVE) H 06/02/19 12:30 Urine Glucose (UA) NEGATIVE mg/dL (NEGATIVE) 06/02/19 12:30 Urine Ketones NEGATIVE mg/dL (NEGATIVE) 06/02/19 12:30 Urine Blood SMALL (NEGATIVE) H 06/02/19 12:30 Urine Nitrite NEGATIVE (NEGATIVE) 06/02/19 12:30 Ur Leukocyte Esterase SMALL (NEGATIVE) H 06/02/19 12:30 Urine WBC (Auto) 12 /HPF 06/02/19 12:30 Urine RBC (Auto) 33 /HPF 06/02/19 12:30 - Vital Signs Vital signs: Temp Pulse Resp BP Pulse Ox 98.1 F 78 22 H 98 06/02/19 12:32 06/02/19 12:32 06/02/19 12:32 06/02/19 12:32 - Laboratory Result Diagrams: 06/02/19 12:58 06/02/19 12:58 Laboratory results interpreted by me: 06/02/19 06/02/19 06/02/19 12:30 12:58 12:58 WBC 11.0 H MCH 26.6 L RDW 15.0 H Seg Neutrophils % 88.6 H Lymphocytes % 9.0 L Monocytes % 2.0 L Absolute Neutrophils 9.8 H Chloride 108 H Glucose 124 H Urine Protein 30 H Urine Blood SMALL H Ur Leukocyte Esterase SMALL H - Diagnostic Test Radiology reviewed: Image reviewed, Reports reviewed Discharge - Discharge Clinical Impression: Flank pain, Kidney stone on left side Condition: Stable Disposition: HOME, SELF-CARE Instructions: Flomax ([facility]), Kidney Stone ([facility]), Oral Narcotic Medication ([facility]), Pain Medication Injection ([facility]), Toradol Injection ([facility]) Additional Instructions: *You have been evaluated for flank pain, kidney stone *Take medication as prescribed *Follow up with [facility] July 06, 2019 at 0930- Please call the office at [phone] to change the appointment or for further information *Return to ED for worsening condition, changes, needs, fever, increased pain, concerns Prescriptions: Cephalexin Monohydrate [Keflex 500 mg Capsule] 500 mg PO QID #20 capsule Oxycodone HCl/Acetaminophen [Percocet 5-325 mg Tablet] 1 tab PO ASDIR PRN #15 tab PRN Reason: Tamsulosin HCl [Flomax 0.4 mg Cap.sr] 0.4 mg PO DAILY #7 cap.sr.24h Forms: Return to Work
[2019-06-02 13:32] LABS: ALBUMIN 4.3 g/dL (3.5-5.0); ALKALINE PHOSPHATASE 88 U/L (38-126); ANION GAP 7 (5-19); ASPARTATE AMINO TRANSFERASE 19 U/L (14-36); BILIRUBIN,DIRECT 0.2 mg/dL (0.0-0.4); BILIRUBIN,TOTAL 0.4 mg/dL (0.2-1.3); BLOOD UREA NITROGEN 13 mg/dL (7-20); CALCIUM 9.8 mg/dL (8.4-10.2); CARBON DIOXIDE 29 mmol/L (22-30); CHLORIDE 108 mmol/L (98-107); GLUCOSE 124 mg/dL (75-110); POTASSIUM 4.8 mmol/L (3.6-5.0); TOTAL PROTEIN 7.2 g/dL (6.3-8.2)
--- NOTE | 2019-06-02 13:57 | RADIOLOGY REPORT (SQ) ---
EXAM DESCRIPTION: CT ABD/PELVIS NO ORAL OR IV COMPLETED DATE/TIME: 06/02/2019 1:40 pm REASON FOR STUDY: left flank pain COMPARISON: 02/11/2018 TECHNIQUE: CT scan of the abdomen and pelvis performed without intravenous or oral contrast. Images reviewed with lung, soft tissue, and bone windows. Reconstructed coronal and sagittal MPR images revi ewed. All images stored on PACS. All CT scanners at this facility use dose modulation, iterative reconstruction, and/or weight based d osing when appropriate to reduce radiation dose to as low as reasonably achievable (ALARA). [facility]: Dose Right [facility]: CareDose [facility]: Dose Right [facility]: Teradose 4D [facility]: Mismi RADIATION DOSE: 998 mGy cm LIMITATIONS: None. FINDINGS: LOWER CHEST: No significant findings. No nodules or infiltrates. NON-CONTRASTED LIVER, SPLEEN, ADRENALS: Evaluation limited by lack of IV contrast. No identified sign ificant masses. PANCREAS: No masses. No peripancreatic inflammatory changes. GALLBLADDER: No identified stones by CT criteria. No inflammatory changes to suggest cholecystitis. RIGHT KIDNEY AND URETER: No suspicious masses. Assessment limited by lack of IV contrast. Small non obstructive calculus. No hydronephrosis or hydroureter. LEFT KIDNEY AND URETER: No suspicious masses. Assessment limited by lack of IV contrast. There is a 3 mm obstructive calculus at the left ureterovesicular junction with moderate associated hydronephros is and hydroureter. Multiple additional small nonobstructive calculi. AORTA AND RETROPERITONEUM: No aneurysm. No retroperitoneal masses or adenopathy. BOWEL AND PERITONEAL CAVITY: No obvious masses or inflammatory changes. No free fluid. APPENDIX: Normal. PELVIS, BLADDER, AND ABDOMINAL WALL:No abnormal masses. No free fluid. Bladder normal. BONES: No significant findings. OTHER: No other significant finding. IMPRESSION: There is a 3 mm obstructive calculus at the left ureterovesicular junction with moderate associated hydronephrosis and hydroureter. There are additional small bilateral nonobstructive agustín l calculi. COMMENT: Quality ID # [id number]: Final reports with documentation of one or more dose reduction techniques (e.g., Automated exposure control, adjustment of the mA and/or kV according to patient size, use of iterative reconstruction technique) TECHNICAL DOCUMENTATION: JOB ID: [id number]- All Rights Reserved Reading location - IP/workstation name: [email or web address]
[2019-06-02] MEDS ORDERED: TAMSULOSIN HCL 0.4 MG CAP.SR.24H PO ONE (14:31)
[2019-06-02 15:35] VITALS: BP 158/100
== END 2019-06-02 15:36 | disposition home or self-care (01) ==
LOC: ER 12:19
DX: N20.0 Calculus of kidney (principal); R10.9 Unspecified abdominal pain; R11.10 Vomiting, unspecified; R11.2 Nausea with vomiting, unspecified
CPT/HCPCS: 99284; 96374; 96375; 36415; 83690; 84703; 85025; 80053; 81001; 74176; J1885; J2270; J3490; J2405

== ENCOUNTER 2020-04-16 06:10 | Emergency (ER) | payer MEDICAID ==
--- NOTE | 2020-04-16 07:18 | EKG REPORT ---
SEVERITY:- NORMAL ECG - SINUS RHYTHM : Confirmed by: Jann Orantes MD 16-Apr-2020 07:16:59
--- NOTE | 2020-04-16 07:55 | RADIOLOGY REPORT (SQ) ---
EXAM: XR Chest, 2 Views EXAM DATE/TIME: 04/16/2020 7:16 AM CLINICAL HISTORY: The patient is 29 years old and is Female; CHEST PAIN TECHNIQUE: Frontal and lateral views of the chest. COMPARISON: Chest radiograph from 11/17/2014. FINDINGS: LUNGS: The lungs are mildly hypoinflated but clear. No consolidation. PLEURAL SPACE: Unremarkable. No pneumothorax. HEART: No significant enlargement of the cardiac silhouette. MEDIASTINUM: Unremarkable. BONES/JOINTS: No acute osseous findings. IMPRESSION: No acute findings visualized in the chest.
--- NOTE | 2020-04-16 08:54 | ER Document Report ---
HPI - HPI Patient complains to provider of: susana piña md Time Seen by Provider: 04/16/20 08:51 Pain Level: 2 - REPRODUCTIVE Reproductive: DENIES: : Past Medical History - Social History Smoking Status: Never Smoker Frequency of alcohol use: None Drug Abuse: None Family History: Reviewed & Not Pertinent Patient has homicidal ideation: No Neurological Medical History: Reports: Hx Migraine Renal/ Medical History: Reports: Hx Kidney Stones. Denies: Hx Peritoneal Dialysis GI Medical History: Reports: Hx Gastroesophageal Reflux Disease Past Surgical History: Reports: Hx Section - Immunizations Immunizations up to date: Yes Hx Diphtheria, Pertussis, Tetanus Vaccination: Yes Vertical Provider Document - INFECTION CONTROL TRAVEL OUTSIDE OF THE [place] IN LAST 30 DAYS: Yes Course - Vital Signs Vital signs: Temp Pulse Resp BP Pulse Ox 98.8 F 77 16 152/115 H 98 04/16/20 06:31 04/16/20 06:31 04/16/20 06:31 04/16/20 06:31 04/16/20 06:31 - Laboratory Result Diagrams: 04/16/20 08:55 04/16/20 08:55 Discharge - Discharge Clinical Impression: Anterior chest wall pain Condition: Stable Disposition: HOME, SELF-CARE Instructions: Anti-Inflammatory Medication ([facility]), Chest Wall Pain ([facility]) Additional Instructions: Chest Wall Pain Your chest pain has been diagnosed as coming from the chest wall. This is often caused by straining the muscles or joints in the chest during physical activity, direct trauma, coughing, or vigorous vomiting. Persons with arthritis are especially prone to this type of pain, due to inflammation of the cartilage joints near the breast bone. Occasionally, no cause can be found. Rest from strenuous physical activity. This kind of chest pain is usually made worse by movement of the chest. Depending on the symptoms, we may prescribe medicine for pain, muscle relaxation, and antiinflammatory effects. If the pain is new, and seems to be due to muscle strain, cold packs can h elp. Otherwise, apply gentle warmth to the painful area for 15 minutes every hour or two. You should contact the doctor immediately if things change. Further evaluation is needed if you develop a fever or cough, if the nature of the pain changes, or if you become short of breath. Prescriptions: Ibuprofen [Motrin 800 mg Tablet] 800 mg PO Q8H PRN #30 tab PRN Reason: pain
[2020-04-16 09:08] LABS: ABSOLUTE EOSINOPHILS # (AUTO) 0.2 10^3/uL (0.0-0.6); ABSOLUTE LYMPHOCYTES (AUTO) 1.7 10^3/uL (0.5-4.7); ABSOLUTE MONOCYTES (AUTO) 0.4 10^3/uL (0.1-1.4); ABSOLUTE NEUT (AUTO) 4.4 10^3/uL (1.7-8.2); BASOPHILS % (AUTO) 0.4 % (0-2); EOSINOPHILS % (AUTO) 2.5 % (0-6); HEMATOCRIT 40.8 % (36.0-47.0); HEMOGLOBIN 13.7 g/dL (12.0-15.5); LYMPHOCYTES % (AUTO) 25.1 % (13-45); MEAN CORPUSCULAR HEMOGLOBIN 28.1 pg (27.0-33.4); MEAN CORPUSCULAR HGB CONC 33.6 g/dL (32.0-36.0); MEAN CORPUSCULAR VOLUME 84 fl (80-97); MONOCYTES % (AUTO) 5.4 % (3-13); PLATELET COUNT 255 10^3/uL (150-450); RED BLOOD COUNT 4.88 10^6/uL (3.72-5.28); RED CELL DISTRIBUTION WIDTH 14.2 % (11.5-14.0); SEGMENTED NEUTROPHILS % (AUTO) 66.6 % (42-78); TOTAL CELLS COUNTED % (AUTO) 100 %; WHITE BLOOD COUNT 6.7 10^3/uL (4.0-10.5)
[2020-04-16 09:22] LABS: ALBUMIN 3.7 g/dL (3.5-5.0); ALKALINE PHOSPHATASE 66 U/L (38-126); ASPARTATE AMINO TRANSFERASE 22 U/L (14-36); BILIRUBIN,TOTAL 0.3 mg/dL (0.2-1.3); BLOOD UREA NITROGEN 14 mg/dL (7-20); CARBON DIOXIDE 28 mmol/L (22-30); CHLORIDE 106 mmol/L (98-107); CREATINE KINASE 51 U/L (30-135); GLUCOSE 97 mg/dL (75-110); POTASSIUM 4.8 mmol/L (3.6-5.0); TOTAL PROTEIN 6.6 g/dL (6.3-8.2)
[2020-04-16 09:33] LABS: ANION GAP 4 (5-19)
[2020-04-16 09:34] LABS: CREATINE KINASE MB 0.85 ng/mL (<4.55)
[2020-04-16 09:35] LABS: TROPONIN I < 0.012 ng/mL
[2020-04-16] MEDS ORDERED: IBUPROFEN 800 MG TABLET PO ONE (10:08)
--- NOTE | 2020-04-16 10:13 | ER Document Report ---
Entered by ALEIDA WRIGHT SCRIBE 04/16/20 0925 Acting as scribe for:CHARY FERNANDO MD ED General - General Chief Complaint: Numbness of Arm Stated Complaint: CHEST PAIN,LEFT ARM NUMBNESS Time Seen by Provider: 04/16/20 08:51 Information source: Patient Notes: This 29 year old female patient presents to the emergency department today with complaints of sharp left chest pain for the past x2 days. 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 Patient states she has been taking Tylenol and over the counter Advil for the chest pain. Patient reports taking x2 200 mg Advil in the afternoon and x6 hours later taking x2 more for the past few days. Patient also reports some hand swelling, which occurs after waking up in the morning and then goes away. Patient states she has seen her Doctor for this before. TRAVEL OUTSIDE OF THE [place] IN LAST 30 DAYS: Yes - Related Data Allergies/Adverse Reactions: No Known Allergies Allergy (Verified 04/16/20 06:22) Home Medications: METOPROLOL Past Medical History - General Information source: Patient - Social History Smoking Status: Never Smoker Cigarette use (# per day): No Frequency of alcohol use: None Drug Abuse: None Family History: Reviewed & Not Pertinent, Hypertension Patient has homicidal ideation: No - Past Medical History Cardiac Medical History: Reports: Hx Hypertension - On meds Neurological Medical History: Reports: Hx Migraine Renal/ Medical History: Reports: Hx Kidney Stones GI Medical History: Reports: Hx Gastroesophageal Reflux Disease Past Surgical History: Reports: Hx Section - Immunizations Immunizations up to date: Yes Hx Diphtheria, Pertussis, Tetanus Vaccination: Yes Review of Systems - Review of Systems Constitutional: No symptoms reported EENT: No symptoms reported Cardiovascular: See HPI, Chest pain Respiratory: No symptoms reported Gastrointestinal: No symptoms reported Genitourinary: No symptoms reported Female Genitourinary: No symptoms reported Musculoskeletal: See HPI Skin: No symptoms reported Hematologic/Lymphatic: No symptoms reported Neurological/Psychological: No symptoms reported -: Yes All other systems reviewed and negative Physical Exam - Vital signs Vitals: Temp 98.8 F 04/16/20 06:22 - General General appearance: Appears well, Alert - HEENT Head: Normocephalic, Atraumatic Eyes: Normal Pupils: PERRL - Respiratory Respiratory status: No respiratory distress Breath sounds: Normal Chest palpation: Normal Notes: Tenderness with palpation to the left mid-sternal region, that is superficial and does not radiate. - Cardiovascular Rhythm: Regular Heart sounds: Normal auscultation, S1 appreciated, S2 appreciated Murmur: No - Abdominal Inspection: Normal, Obese Distension: No distension Bowel sounds: Normal Tenderness: Nontender - Extremities General upper extremity: Normal inspection. No: Edema General lower extremity: Normal inspection. No: Edema - Neurological Neuro grossly intact: Yes Cognition: Normal Orientation: AAOx4 Speech: Normal - Psychological Associated symptoms: Normal affect, Normal mood - Skin Skin Temperature: Warm Skin Moisture: Dry Skin Color: Normal Course - Vital Signs Vital signs: Temp Pulse Resp BP Pulse Ox 98.8 F 77 14 147/89 H 99 04/16/20 06:31 04/16/20 06:31 04/16/20 09:00 04/16/20 08:58 04/16/20 09:00 04/16/20 10:10 Vital signs stable no acute process. - Laboratory Result Diagrams: 04/16/20 08:55 04/16/20 08:55 Laboratory results interpreted by me: 04/16/20 04/16/20 08:55 08:55 RDW 14.2 H Anion Gap 4 L - Diagnostic Test Radiology reviewed: Image reviewed, Reports reviewed Radiology results interpreted by me: 04/16/20 10:09 Chest x-ray shows no acute process. - EKG Interpretation by Me Additional EKG results interpreted by me: 04/16/20 10:10 Twelve-lead EKG normal sinus rhythm no acute process. Discharge - Discharge Clinical Impression: Anterior chest wall pain Condition: Stable Disposition: HOME, SELF-CARE Instructions: Anti-Inflammatory Medication ([facility]), Chest Wall Pain ([facility]) Additional Instructions: Chest Wall Pain Your chest pain has been diagnosed as coming from the chest wall. This is often caused by straining the muscles or joints in the chest during physical activity, direct trauma, coughing, or vigorous vomiting. Persons with arthritis are especially prone to this type of pain, due to inflammation of the cartilage joints near the breast bone. Occasionally, no cause can be found. Rest from strenuous physical activity. This kind of chest pain is usually made worse by movement of the chest. Depending on the symptoms, we may prescribe medicine for pain, muscle relaxation, and antiinflammatory effects. If the pain is new, and seems to be due to muscle strain, cold packs can help. Otherwise, apply gentle warmth to the painful area for 15 minutes every hour or two. You should contact the doctor immediately if things change. Further evaluation is needed if you develop a fever or cough, if the nature of the pain changes, or if you become short of breath. Prescriptions: Ibuprofen [Motrin 800 mg Tablet] 800 mg PO Q8H PRN #30 tab PRN Reason: pain I personally performed the services described in the documentation, reviewed and edited the documentation which was dictated to the scribe in my presence, and it accurately records my words and actions.
[2020-04-16 10:16] VITALS: BP 150/90
== END 2020-04-16 10:19 | disposition home or self-care (01) ==
LOC: ER 06:10
DX: R07.89 Other chest pain (principal); M79.89 Other specified soft tissue disorders; I10 Essential (primary) hypertension; Z79.899 Other long term (current) drug therapy
CPT/HCPCS: 93005; 99285; 36415; 82553; 82550; 85025; 80053; 84484; 71046; 93010; J3490

== ENCOUNTER 2020-06-21 15:52 | Emergency (ER) | payer MEDICAID ==
[2020-06-21 16:33] VITALS: BP 133/91
--- NOTE | 2020-06-21 16:50 | ER Document Report ---
ED Medical Screen (RME) - General Chief Complaint: Pedal Edema Stated Complaint: CHEST PAIN/SHORTNESS OF BREATH/FEET SWELLING Time Seen by Provider: 06/21/20 16:03 Mode of Arrival: Ambulatory Information source: Patient Notes: Patient is a 29-year-old female comes in with multiple complaints today. Her primary complaint is bilateral lower extremity edema with chest pain and shortness of breath. Patient states that it started approximately 3 days ago the swelling started yesterday. 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 She has a history of hypertension and is currently on medications for. She also has complaint of left hip pain with radiation down the leg. And she has complaint of anterior right-sided chest pain with radiation to the right shoulder. Physical exam: Patient is a well-nourished well-developed obese 29-year-old female with no apparent distress on examination sitting. Cardiac: Regular rate and rhythm no murmurs are auscultated. Lungs: Bilateral breath sounds increased clear to auscultation no rhonchi rales or wheeze. Abdomen: Bowel sounds present all 4 quads nontender to palpate. Bilateral lower extremities show 2+ edema equal on both sides. Good dorsalis pedal pulses are also noted. I have greeted and performed a rapid initial assessment of this patient. A comprehensive ED assessment and evaluation of the patient, analysis of test results and completion of the medical decision making process will be conducted by additional ED providers. Dictation of this chart was performed using voice recognition software; therefore, there may be some unintended grammatical errors. TRAVEL OUTSIDE OF THE [place] IN LAST 30 DAYS: Yes - Related Data Allergies/Adverse Reactions: No Known Allergies Allergy (Verified 06/21/20 16:37) Home Medications: htn Past Medical History - Social History Chew tobacco use (# tins/day): No Frequency of alcohol use: None Drug Abuse: None - Past Medical History Cardiac Medical History: Reports: Hx Hypertension - On meds Neurological Medical History: Reports: Hx Migraine Renal/ Medical History: Reports: Hx Kidney Stones. Denies: Hx Peritoneal Dialysis GI Medical History: Reports: Hx Gastroesophageal Reflux Disease Past Surgical History: Reports: Hx Section - Immunizations Immunizations up to date: Yes Hx Diphtheria, Pertussis, Tetanus Vaccination: Yes Physical Exam - Vital signs Vitals: Temp Pulse Resp BP Pulse Ox 97.9 F 77 20 133/91 H 99 06/21/20 16:31 06/21/20 16:31 06/21/20 16:31 06/21/20 16:31 06/21/20 16:31 Course - Vital Signs Vital signs: Temp Pulse Resp BP Pulse Ox 97.9 F 77 20 133/91 H 99 06/21/20 16:37 06/21/20 16:31 06/21/20 16:31 06/21/20 16:31 06/21/20 16:31
[2020-06-21 17:17] LABS: ABSOLUTE EOSINOPHILS # (AUTO) 0.2 10^3/uL (0.0-0.6); ABSOLUTE LYMPHOCYTES (AUTO) 1.9 10^3/uL (0.5-4.7); ABSOLUTE MONOCYTES (AUTO) 0.3 10^3/uL (0.1-1.4); PLATELET COUNT 234 10^3/uL (150-450); TOTAL CELLS COUNTED % (AUTO) 100 %
--- NOTE | 2020-06-21 17:26 | RADIOLOGY REPORT (SQ) ---
EXAM DESCRIPTION: CHEST 2 VIEWS IMAGES COMPLETED DATE/TIME: 06/21/2020 5:02 pm REASON FOR STUDY: Short of breath COMPARISON: 04/16/2020 EXAM PARAMETERS: NUMBER OF VIEWS: two views TECHNIQUE: Digital Frontal and Lateral radiographic views of the chest acquired. RADIATION DOSE: NA LIMITATIONS: none FINDINGS: LUNGS AND PLEURA: No opacities, masses or pneumothorax. No pleural effusion. MEDIASTINUM AND HILAR STRUCTURES: No masses or contour abnormalities. HEART AND VASCULAR STRUCTURES: Heart normal size. No evidence for failure. BONES: No acute findings. HARDWARE: None in the chest. OTHER: No other significant finding. IMPRESSION: NO ACUTE RADIOGRAPHIC FINDING IN THE CHEST. TECHNICAL DOCUMENTATION: JOB ID: [id number] 2010 [employer]- All Rights Reserved Reading location - IP/workstation name: [email or web address]
[2020-06-21 17:32] LABS: ABSOLUTE BASOPHILS # (AUTO) 0.1 10^3/uL (0.0-0.2); ABSOLUTE NEUT (AUTO) 3.3 10^3/uL (1.7-8.2); BASOPHILS % (AUTO) 0.9 % (0-2); EOSINOPHILS % (AUTO) 2.9 % (0-6); HEMATOCRIT 37.1 % (36.0-47.0); HEMOGLOBIN 12.6 g/dL (12.0-15.5); LYMPHOCYTES % (AUTO) 33.4 % (13-45); MEAN CORPUSCULAR HEMOGLOBIN 27.6 pg (27.0-33.4); MEAN CORPUSCULAR VOLUME 81 fl (80-97); MONOCYTES % (AUTO) 5.3 % (3-13); RED BLOOD COUNT 4.56 10^6/uL (3.72-5.28); RED CELL DISTRIBUTION WIDTH 13.7 % (11.5-14.0); SEGMENTED NEUTROPHILS % (AUTO) 57.5 % (42-78); WHITE BLOOD COUNT 5.8 10^3/uL (4.0-10.5)
[2020-06-21 17:43] LABS: ALBUMIN 3.4 g/dL (3.5-5.0); ALKALINE PHOSPHATASE 72 U/L (38-126); ANION GAP 5 (5-19); ASPARTATE AMINO TRANSFERASE 18 U/L (14-36); BILIRUBIN,TOTAL 0.3 mg/dL (0.2-1.3); BLOOD UREA NITROGEN 12 mg/dL (7-20); CALCIUM 8.4 mg/dL (8.4-10.2); CARBON DIOXIDE 28 mmol/L (22-30); CHLORIDE 106 mmol/L (98-107); CREATINE KINASE 76 U/L (30-135); GLUCOSE 97 mg/dL (75-110); POTASSIUM 3.9 mmol/L (3.6-5.0); TOTAL PROTEIN 6.3 g/dL (6.3-8.2)
[2020-06-21 17:52] LABS: CREATINE KINASE MB 0.98 ng/mL (<4.55)
[2020-06-21 17:56] LABS: TROPONIN I < 0.012 ng/mL
--- NOTE | 2020-06-22 14:12 | EKG REPORT ---
SEVERITY:- BORDERLINE ECG - SINUS RHYTHM BORDERLINE T ABNORMALITIES, ANT-LAT LEADS : Confirmed by: Kristin Sandoval 22-Jun-2020 14:11:20
== END 2020-06-21 20:30 | disposition left against medical advice (07) ==
LOC: ER 15:52
DX: Z53.20 Procedure and treatment not carried out because of patient's decision for unspecified reasons (principal); R60.0 Localized edema; R07.9 Chest pain, unspecified; R06.02 Shortness of breath; M79.89 Other specified soft tissue disorders
CPT/HCPCS: 36415; 71046; 80053; 82550; 82553; 84484; 85025; 93005; 93010; 99281

== ENCOUNTER 2020-06-22 09:50 | Emergency (ER) | payer MEDICAID ==
--- NOTE | 2020-06-22 10:44 | ER Document Report ---
ED Medical Screen (RME) - General Chief Complaint: Pain With Urination Stated Complaint: CHEST PAIN/PAINFUL URINATION Time Seen by Provider: 06/22/20 10:37 Mode of Arrival: Ambulatory Information source: Patient Notes: 29-year-old female with history of hypertension presenting to the emergency department multiple complaints. Complaint #1 is dysuria that began this morning. Complaint #2 as chest pressure that has been ongoing for the last 6 months, worsening over the last few months. She states 6 months ago she had an injury to her chest wall. The PCT upfront tried getting an EKG which the patient refused. Lung sounds clear and equal bilaterally, heart sounds S1-S2 present, normal rate, normal rhythm. I have greeted and performed a rapid initial assessment of this patient. A co mprehensive ED assessment and evaluation of the patient, analysis of test results and completion of the medical decision making process will be conducted by additional ED providers. I have specifically instructed the patient or family members with the patient to immediately return to any nursing staff should anything change in the patient's condition or with their chief complaint. TRAVEL OUTSIDE OF THE [place] IN LAST 30 DAYS: Yes - Related Data Allergies/Adverse Reactions: No Known Allergies Allergy (Verified 06/21/20 16:37) Past Medical History - Past Medical History Cardiac Medical History: Reports: Hx Hypertension - On meds Neurological Medical History: Reports: Hx Migraine Renal/ Medical History: Reports: Hx Kidney Stones. Denies: Hx Peritoneal Dialysis GI Medical History: Reports: Hx Gastroesophageal Reflux Disease Past Surgical History: Reports: Hx Section - Immunizations Immunizations up to date: Yes Hx Diphtheria, Pertussis, Tetanus Vaccination: Yes Physical Exam - Vital signs Vitals: Temp Pulse Resp BP Pulse Ox 98.0 F 66 20 145/106 H 98 06/22/20 09:58 06/22/20 09:58 06/22/20 09:58 06/22/20 09:58 06/22/20 09:58 Course - Vital Signs Vital signs: Temp Pulse Resp BP Pulse Ox 98.0 F 66 20 145/106 H 98 06/22/20 09:58 06/22/20 09:58 06/22/20 09:58 06/22/20 09:58 06/22/20 09:58
[2020-06-22 11:41] LABS: APPEARANCE,URINE SLIGHTLY-CLOUDY; BILIRUBIN,URINE NEGATIVE (NEGATIVE); COLOR,URINE YELLOW; GLUCOSE, URINE NEGATIVE (NEGATIVE); KETONES,URINE NEGATIVE (NEGATIVE); LEUKOCYTE ESTERASE,URINE MODERATE (NEGATIVE); NITRITE,URINE NEGATIVE (NEGATIVE); PROTEIN,URINE NEGATIVE (NEGATIVE); URINE SPECIFIC GRAVITY 1.018
[2020-06-22] MEDS ORDERED: ACETAMINOPHEN 325 MG TABLET PO ONE (11:57)
[2020-06-22] MEDS ORDERED: CEPHALEXIN 500 MG CAPSULE PO ONE (11:57)
--- NOTE | 2020-06-22 12:00 | ER Document Report ---
HPI - HPI Patient complains to provider of: Dysuria Time Seen by Provider: 06/22/20 10:37 Onset: This morning Onset/Duration: Gradual Quality of pain: Burning Pain Level: 3 Context: Patient presents complaining of dysuria and urinary frequency that started today. Patient is concerned she may have a UTI. Patient states she has had chest wall pain for the past 6 months after an injury at work. Patient states that she cannot take Motrin to treat her pain symptoms due to her hypertension. Patient denies any recent injury. Patient denies any cough or cold symptoms. Patient states that she had ankle swelling for the past 3 days which made her concerned. Patient denies any leg pain. Associated Symptoms: Chest pain, Other - Dysuria. denies: Nonproductive cough, Productive cough, Fever Exacerbated by: Denies Relieved by: Denies Similar symptoms previously: Yes Recently seen / treated by doctor: Yes - ROS ROS below otherwise negative: Yes Systems Reviewed and Negative: Yes All other systems reviewed and negative - CONSTITUTIONAL Constitutional: DENIES: Fever - EENT EENT: DENIES: Sore Throat - NEURO Neurology: DENIES: Headache, Weakness - CARDIOVASCULAR Cardiovascular: REPORTS: Chest pain - RESPIRATORY Respiratory: DENIES: Trouble Breathing, Coughing - GASTROINTESTINAL Gastrointestinal: DENIES: Nausea, Patient vomiting - URINARY Urinary: REPORTS: Dysuria, Frequency - REPRODUCTIVE Reproductive: DENIES: : - MUSCULOSKELETAL Musculoskeletal: REPORTS: Swelling. DENIES: Extremity pain, Back Pain, Neck Pain - DERM Skin Color: Normal Skin Problems: None Past Medical History - General Information source: Patient - Social History Smoking Status: Never Smoker Frequency of alcohol use: None Drug Abuse: None Occupation: Laundry service at [employer] Lives with: Family Family History: Reviewed & Not Pertinent - Past Medical History Cardiac Medical History: Reports: Hx Hypertension - On meds Neurological Medical History: Reports: Hx Migraine Renal/ Medical History: Reports: Hx Kidney Stones. Denies: Hx Peritoneal Dialysis GI Medical History: Reports: Hx Gastroesophageal Reflux Disease Past Surgical History: Reports: Hx Section - Immunizations Immunizations up to date: Yes Hx Diphtheria, Pertussis, Tetanus Vaccination: Yes Vertical Provider Document - CONSTITUTIONAL Agree With Documented VS: Yes Exam Limitations: No Limitations General Appearance: WD/WN, No Apparent Distress Notes: PHYSICAL EXAMINATION: GENERAL: Well-appearing and in no acute distress. HEAD: Atraumatic, normocephalic. EYES: sclera anicteric, conjunctiva are normal. ENT: nares patent. Moist mucous membranes. NECK: Normal range of motion, supple without lymphadenopathy LUNGS: CTAB and equal. No wheezes rales or rhonchi. Anterior chest wall tenderness with palpation HEART: Regular rate and rhythm without murmurs ABDOMEN: Soft, nontender EXTREMITIES: Normal range of motion, 1+ edema bilateral feet and ankles right worse than left. No cyanosis. BACK: No midline tenderness, no step-off or deformity. No CVA tenderness NEUROLOGICAL: Cranial nerves grossly intact. Normal speech. Normal gait. PSYCH: Normal mood, normal affect. SKIN: Warm, Dry, normal turgor, no rashes or lesions noted - INFECTION CONTROL TRAVEL OUTSIDE OF THE [place] IN LAST 30 DAYS: Yes Course - Re-evaluation Re-evalutation: 06/22/20 11:58 Patient presents with chronic chest wall pain after an injury 6 months ago. Patient states pain is similar to what she has had in the past. Patient became concerned about pedal edema which prompted her visit. Patient also complains of some dysuria symptoms that started today. Patient does have mild UTI. The patient has atypical chest pain as the patient's chest pain is not suggestive of pulmonary embolus, cardiac ischemia, aortic dissection, or other serious etiology. Given the extremely low risk of these diagnoses, evaluation for these possibilities does not appear to be indicated at this time. Patient has been instructed to return if the symptoms worsen or change in any way. - Vital Signs Vital signs: Temp Pulse Resp BP Pulse Ox 98.0 F 66 20 145/106 H 98 06/22/20 09:58 06/22/20 09:58 06/22/20 09:58 06/22/20 09:58 06/22/20 09:58 - Laboratory Laboratory results interpreted by me: 06/22/20 10:45 Urine Urobilinogen 4.0 H Ur Leukocyte Esterase MODERATE H 06/22/20 11:59 Labs- All tests 24 hr 06/22/20 10:45 Urine Color YELLOW Urine Appearance SLIGHTLY-CLOUDY Urine pH 7.0 Ur Specific [place] 1.018 Urine Protein NEGATIVE Urine Glucose (UA) NEGATIVE Urine Ketones NEGATIVE Urine Blood NEGATIVE Urine Nitrite NEGATIVE Urine Bilirubin NEGATIVE Urine Urobilinogen 4.0 H Ur Leukocyte Esterase MODERATE H Urine WBC (Auto) 5 Urine RBC (Auto) 2 U Hyaline Cast (Auto) 1 Urine Bacteria (Auto) TRACE Squamous Epi Cells Auto 7 Urine Mucus (Auto) RARE Urine Ascorbic Acid NEGATIVE Discharge - Discharge Clinical Impression: Pedal edema, Chronic chest pain UTI (urinary tract infection) Qualifiers: Urinary tract infection type: site unspecified Hematuria presence: without hematuria Qualified Code(s): N39.0 - Urinary tract infection, site not specified Condition: Stable Disposition: HOME, SELF-CARE Instructions: Acetaminophen, Cephalexin ([facility]), Chronic Pain Control ([facility]), Edema, Peripheral ([facility]), Muscle Relaxers ([facility]), Urinary Tract Infection ([facility]) Additional Instructions: Return immediately for any new or worsening symptoms Followup with your primary care provider, call tomorrow to make a followup appointment Wear support stockings when you are at work, elevate your feet as needed to help with swelling Decrease sodium in diet Prescriptions: Cyclobenzaprine HCl [Flexeril 10 Mg Tablet] 10 mg PO TID #15 tablet Cephalexin Monohydrate [Keflex 500 mg Capsule] 500 mg PO BID 5 Days #10 capsule Forms: Return to Work [facility] [Provider Group] - Follow up as needed
[2020-06-22 12:21] VITALS: BP 143/103
== END 2020-06-22 12:17 | disposition home or self-care (01) ==
LOC: ER 09:50
DX: N39.0 Urinary tract infection, site not specified (principal); R60.0 Localized edema; G89.29 Other chronic pain; R30.0 Dysuria; R35.0 Frequency of micturition; R07.9 Chest pain, unspecified; R07.89 Other chest pain
CPT/HCPCS: 99283; 87086; 81001; J3490

== ENCOUNTER 2020-08-12 19:02 | Emergency (ER) | payer MEDICAID ==
[2020-08-12 19:32] VITALS: BP 134/86
[2020-08-12] MEDS ORDERED: KETOROLAC TROMETHAMINE 60 MG/2 ML SDV IM ONE (20:06)
[2020-08-12] MEDS ORDERED: ONDANSETRON 4 MG TAB.RAPDIS PO ONE (20:08)
--- NOTE | 2020-08-12 20:11 | ER Document Report ---
ED Medical Screen (RME) - General Chief Complaint: Flank Pain Stated Complaint: FLANK PAIN Time Seen by Provider: 08/12/20 20:05 Mode of Arrival: Ambulatory Information source: Patient Notes: 29-year-old female with urinary tract infection recently treated with Keflex for 5 days. Getting worse. Having increased back pain and nausea. No fevers no shaking chills. General exam nontoxic Cardiac regular rate and rhythm Pulmonary no acute distress Abdomen positive bilateral CVA tenderness pain Neuro no focal deficits I have greeted and performed a rapid initial assessment of this patient. A comprehensive ED assessment and evaluation of the patient, analysis of test results and completion of the medical decision making process will be conducted by additional ED providers. TRAVEL OUTSIDE OF THE [place] IN LAST 30 DAYS: Yes - Related Data Allergies/Adverse Reactions: No Known Allergies Allergy (Verified 06/21/20 16:37) Past Medical History - Past Medical History Cardiac Medical History: Reports: Hx Hypertension - On meds Neurological Medical History: Reports: Hx Migraine Renal/ Medical History: Reports: Hx Kidney Stones. Denies: Hx Peritoneal Dialysis GI Medical History: Reports: Hx Gastroesophageal Reflux Disease Past Surgical History: Reports: Hx Section - Immunizations Immunizations up to date: Yes Hx Diphtheria, Pertussis, Tetanus Vaccination: Yes Physical Exam - Vital signs Vitals: Temp Pulse Resp BP Pulse Ox 98.6 F 111 H 18 134/86 H 98 08/12/20 19:32 08/12/20 19:32 08/12/20 19:32 08/12/20 19:32 08/12/20 19:32 Course - Vital Signs Vital signs: Temp Pulse Resp BP Pulse Ox 98.6 F 111 H 18 134/86 H 98 08/12/20 19:32 08/12/20 19:32 08/12/20 19:32 08/12/20 19:32 08/12/20 19:32
[2020-08-12 20:49] LABS: ABSOLUTE BASOPHILS # (AUTO) 0.1 10^3/uL (0.0-0.2); ABSOLUTE EOSINOPHILS # (AUTO) 0.1 10^3/uL (0.0-0.6); ABSOLUTE LYMPHOCYTES (AUTO) 2.1 10^3/uL (0.5-4.7); ABSOLUTE MONOCYTES (AUTO) 0.4 10^3/uL (0.1-1.4); ABSOLUTE NEUT (AUTO) 6.8 10^3/uL (1.7-8.2); BASOPHILS % (AUTO) 0.6 % (0-2); EOSINOPHILS % (AUTO) 1.4 % (0-6); HEMATOCRIT 43.2 % (36.0-47.0); HEMOGLOBIN 14.8 g/dL (12.0-15.5); MEAN CORPUSCULAR HEMOGLOBIN 28.1 pg (27.0-33.4); MEAN CORPUSCULAR HGB CONC 34.3 g/dL (32.0-36.0); MEAN CORPUSCULAR VOLUME 82 fl (80-97); MONOCYTES % (AUTO) 4.4 % (3-13); PLATELET COUNT 285 10^3/uL (150-450); RED BLOOD COUNT 5.27 10^6/uL (3.72-5.28); RED CELL DISTRIBUTION WIDTH 14.3 % (11.5-14.0); SEGMENTED NEUTROPHILS % (AUTO) 71.6 % (42-78); TOTAL CELLS COUNTED % (AUTO) 100 %; WHITE BLOOD COUNT 9.5 10^3/uL (4.0-10.5)
[2020-08-12 20:56] LABS: APPEARANCE,URINE CLOUDY; BILIRUBIN,URINE NEGATIVE (NEGATIVE); COLOR,URINE YELLOW; GLUCOSE, URINE NEGATIVE (NEGATIVE); KETONES,URINE NEGATIVE (NEGATIVE); PROTEIN,URINE 30 mg/dL (NEGATIVE); URINE SPECIFIC GRAVITY 1.026
[2020-08-12 21:09] LABS: ALBUMIN 4.4 g/dL (3.5-5.0); ALKALINE PHOSPHATASE 86 U/L (38-126); ANION GAP 11 (5-19); ASPARTATE AMINO TRANSFERASE 19 U/L (14-36); BILIRUBIN,DIRECT 0.3 mg/dL (0.0-0.4); BILIRUBIN,TOTAL 0.8 mg/dL (0.2-1.3); BLOOD UREA NITROGEN 16 mg/dL (7-20); CALCIUM 9.3 mg/dL (8.4-10.2); CARBON DIOXIDE 25 mmol/L (22-30); CHLORIDE 102 mmol/L (98-107); GLUCOSE 104 mg/dL (75-110); POTASSIUM 4.3 mmol/L (3.6-5.0); TOTAL PROTEIN 7.4 g/dL (6.3-8.2)
[2020-08-12] MEDS ORDERED: KETOROLAC TROMETHAMINE 60 MG/2 ML SDV ONE (23:19)
== END 2020-08-13 03:08 | disposition left against medical advice (07) ==
LOC: ER 19:02
DX: M54.9 Dorsalgia, unspecified (principal); R11.0 Nausea; I10 Essential (primary) hypertension; Z87.440 Personal history of urinary (tract) infections; Z87.442 Personal history of urinary calculi; Z53.20 Procedure and treatment not carried out because of patient's decision for unspecified reasons
CPT/HCPCS: 99281; 96372; 36415; 84703; 85025; 80053; 81001; J1885; S0119

== ENCOUNTER → 2020-08-14 | Outpatient (CLI) | payer MEDICAID ==
--- NOTE | 2020-08-14 17:58 | RADIOLOGY REPORT (SQ) ---
EXAM DESCRIPTION: CT ABD/PELVIS WITH IV ORAL IMAGES COMPLETED DATE/TIME: 08/14/2020 5:31 pm REASON FOR STUDY: RIGHT FLANK PAIN, KLEBSOELLA UTI, HX KIDNEY STONES COMPARISON: 08/16/2019 TECHNIQUE: CT scan of the abdomen and pelvis performed using helical scanning technique with dynamic intravenous contrast injection. No oral contrast. Images reviewed with lung, soft tissue, and bone w indows. Reconstructed coronal and sagittal MPR images reviewed. Delayed images for evaluation of the urinary system also acquired. All images stored on PACS. All CT scanners at this facility use dose modulation, iterative reconstruction, and/or weight based d osing when appropriate to reduce radiation dose to as low as reasonably achievable (ALARA). [facility]: Dose Right [facility]: CareDose [facility]: Dose Right [facility]: Teradose 4D [facility]: Mixertech CONTRAST TYPE AND DOSE: contrast/concentration: Isovue 350.00 mmol/ml; Total Contrast Delivered: 100 .0 ml; Total Saline Delivered: 65.9 ml RENAL FUNCTION: GFR > 60. RADIATION DOSE: CT Rad equipment meets quality standard of care and radiation dose reduction techniq ues were employed. CTDIvol: 17.7 - 20.6 mGy. DLP: 2088 mGy-cm.. LIMITATIONS: None. FINDINGS: LOWER CHEST: No significant findings. LIVER: Normal size. No enhancing masses. No dilated ducts. SPLEEN: Normal size. No focal lesions. PANCREAS: No masses identified. No significant calcifications. No adjacent inflammation or peripancre atic fluid collections. Pancreatic duct not dilated. GALLBLADDER: No calcified stones. No inflammatory changes to suggest cholecystitis. ADRENAL GLANDS: No significant masses. RIGHT KIDNEY AND URETER: Small parenchymal cysts identified. No solid masses identified. No calcified stones. No hydronephrosis or hydroureter. LEFT KIDNEY AND URETER: No cysts identified. No solid masses identified. No calcified stones. No hydr onephrosis or hydroureter. AORTA AND VESSELS: No aneurysm. No dissection. Renal arteries, SMA, celiac without significant stenos is. RETROPERITONEUM: No bulky retroperitoneal adenopathy. BOWEL AND PERITONEAL CAVITY: No obstruction or inflammatory changes. No free fluid. APPENDIX: Normal. PELVIS: No mass. No free fluid. Unremarkable bladder. ABDOMINAL WALL: No masses. No hernias. BONES: No acute findings. OTHER: No other significant finding. IMPRESSION: NO ACUTE FINDINGS IN THE ABDOMEN OR PELVIS ON CT SCAN WITH IV CONTRAST. TECHNICAL DOCUMENTATION: JOB ID: [id number] [id number] Quality ID # [id number]: Final reports with documentation of one or more dose reduction techniques (e.g., Au tomated exposure control, adjustment of the mA and/or kV according to patient size, use of iterative reconstruction technique) 2010 [employer]- All Rights Reserved Reading location - IP/workstation name: [email or web address]
== END ==
LOC: RAD 14:18
PROVIDERS: ATTEND Family Medicine
DX: R10.9 Unspecified abdominal pain (principal); N39.0 Urinary tract infection, site not specified; B96.1 Klebsiella pneumoniae [K. pneumoniae] as the cause of diseases classified elsewhere; Z87.442 Personal history of urinary calculi
CPT/HCPCS: 74177